=== PATIENT | female | born 1940 | race Caucasian/White ===

== ENCOUNTER 2017-09-13 13:15 | Outpatient (CLI) | payer MEDICARE, OTHER ==
[2017-09-13 12:52] LABS: #Basophils 0.1 thou/uL (0.0-0.2); #Eosinphils 0.8 thou/uL (0.0-0.7); #Lymphocytes 2.1 thou/uL (1.20-3.40); #Monocytes 0.5 thou/uL (0.11-0.59); #Neutrophils 3.8 thou/uL (1.40-6.50); %Basophils 0.8 % (0.0-1.0); %Eosinophils 10.6 % (0.0-10.0); %Lymphocytes 28.5 % (21.0-51.0); %Monocytes 7.1 % (0.0-10.0); Hematocrit 40.1 % (36.0-47.0); Red Blood Cell (RBC) Count 3.98 mill/uL (4.20-5.40); White Blood Cell (WBC) Count 7.2 thou/uL (4.8-10.8)
[2017-09-13 13:14] LABS: Anion Gap 11 mmol/L (10-20); BUN (Urea Nitrogen) 26 mg/dL (9.8-20.1); Calc. Creatinine Clearance 0 mL/min (70-130); Calcium 9.1 mg/dL (7.8-10.44); Carbon Dioxide 25 mmol/L (23-31); Chloride 107 mmol/L (98-107); Estimated GFR-MDRD 41
--- NOTE | 2017-09-13 14:47 | BD ---
DEXA BONE DENSTIY SCAN: Date: 09-13-17 Comparison: None. History: 76-year-old post-menopausal female undergoing screening examination for osteoporosis. Lumbar Spine: BMD (g/cm2) L1 0.670 T-Score: -2.9 L2 0.720 T-Score: -2.8 L3 0.729 T-Score: -3.2 L4 0.871 T-Score: -1.7 L1-L4 0.763 T-Score: -2.6 Femoral Neck: 0.614 T-Score: -2.1 Total Femur: 0.660 T-Score: -2.3 The FRAX/WHO fracture risk assessment is not reported as some T-scores are at or below -2.5. Impression: Osteoporosis of the lumbar spine, correlating with a high risk for fracture. Femoral neck/proximal femoral osteopenia which corresponds with a moderately increased risk for frac ture. POS: [facility]
--- OUTSIDE RECORDS SUMMARY | 2017-09-15 08:02 | XMS | Clinical Summary ---
:1940 Author Organization [facility] Address [address] [place] [address] Phone Care Team Providers Name Role Phone , Primary Care Provider Unavailable Allergies Not on File Current Medications Not on file Active Problems Not on file Social History Tobacco Use Types Packs/Day Years Used Date Never Assessed Sex Assigned at Date Recorded Not on file Last Filed Vital Signs Not on file Plan of Treatment Not on file Results Not on filefrom Last 3 Months
== END 2017-09-13 13:16 | disposition home or self-care (01) ==
LOC: MAMMO 13:15
PROVIDERS: ATTEND Urology
DX: M85.851 Other specified disorders of bone density and structure, right thigh (principal); M85.852 Other specified disorders of bone density and structure, left thigh; M81.0 Age-related osteoporosis without current pathological fracture; M85.859 Other specified disorders of bone density and structure, unspecified thigh
CPT/HCPCS: 36415; 77080; 80048; 82607; 85025

== ENCOUNTER 2017-10-17 14:20 | Outpatient (CLI) | payer MEDICARE ==
--- NOTE | 2017-10-17 19:24 | CT ---
NONCONTRAST CT ABDOMEN AND PELVIS: 10/17/2017 HISTORY: Left flank pain that started today. The patient noticed a stone in her urostomy bag. History of hys terectomy. COMPARISON: 04/02/2016. FINDINGS: There is calcification of the mitral valve annulus. Vascular calcifications are seen in the abdomina l aorta and iliac arteries as well as limited visualized coronary arteries. There is linear scarring versus atelectasis at each lung base. There are post-surgical changes relat ed to gastric bypass procedure. Nonobstructing bilateral renal calculi are seen with 5-6 mm nonobstructing calculi in the inferior po le of each kidney and a few 2-3 mm nonobstructing calculi in the mid-portion left kidney. There is p rominent extrarenal pelvis on the left. There is no hydronephrosis. The ureters are well-visualized and not dilated and demonstrate no urete ral calculi. Post-surgical changes of loops of bowel within the pelvis. The urinary bladder is not visualized. T here is evidence of hysterectomy. There is artifact within the pelvis due to left total hip prosthesis. No other interval change compared to the prior exam. There has also been no significant interval betzaida nge from the contrasted CT scan exam on 06/08/2017, although there is less dilatation of the right re nal collecting system when compared to that prior exam. In addition, the calyces in the left kidney are no longer dilated, although there does remain prominence of the left renal pelvis, probably relat ed to an extrarenal pelvis. IMPRESSION: 1. Nonobstructing bilateral renal calculi. There is no evidence of hydronephrosis. Prominent left e xtrarenal pelvis is present. 2. Post-surgical changes of the abdomen and pelvis as described above. There has been no additional significant interval changes when compared to the prior study; although, there has been resolution of the previously noted bilateral hydronephrosis noted on the more recent study on 06/08/2017. POS: [facility]
== END 2017-10-17 14:21 | disposition home or self-care (01) ==
LOC: CT 14:20
PROVIDERS: ATTEND Urology
DX: R10.9 Unspecified abdominal pain (principal); N20.0 Calculus of kidney; Z98.890 Other specified postprocedural states
CPT/HCPCS: 74176; 87086

== ENCOUNTER 2017-10-19 16:31 | Inpatient (IN) | payer MEDICARE ==
[2017-10-19] MEDS ORDERED: Ondansetron HCl/PF 4 MG/2 ML Vial SLOW IVP PRN (17:32)
[2017-10-19] MEDS ORDERED: Acetaminophen 325 MG TAB PO PRN (17:32)
[2017-10-19 17:48] LABS: #Eosinphils 0.1 thou/uL (0.0-0.7); #Lymphocytes 0.8 thou/uL (1.20-3.40); #Monocytes 0.7 thou/uL (0.11-0.59); #Neutrophils 13.8 thou/uL (1.40-6.50); %Eosinophils 0.7 % (0.0-10.0); %Monocytes 4.6 % (0.0-10.0); Hematocrit 33.8 % (36.0-47.0); Mean Platelet Volume 7.4 fL (7.4-10.4); Red Blood Cell (RBC) Count 3.26 mill/uL (4.20-5.40); White Blood Cell (WBC) Count 15.4 thou/uL (4.8-10.8)
[2017-10-19 18:09] VITALS: BMI 23.4
[2017-10-19 18:11] LABS: ALT (SGPT) 10 U/L (8-55); AST (SGOT) 19 U/L (5-34); Alkaline Phosphatase 122 U/L (40-150); Anion Gap 12 mmol/L (10-20); BUN (Urea Nitrogen) 26 mg/dL (9.8-20.1); Bilirubin, Total 0.6 mg/dL (0.2-1.2); Calc. Creatinine Clearance 38 mL/min (70-130); Calcium 8.9 mg/dL (7.8-10.44); Carbon Dioxide 20 mmol/L (23-31); Chloride 106 mmol/L (98-107); Estimated GFR-MDRD 48; Globulin 3.8 g/dL (2.4-3.5)
--- NOTE | 2017-10-19 19:02 | RAD ---
CHEST TWO VIEW 10/19/17 HISTORY: Pneumonia. COMPARISON: Chest radiograph from 2012. FINDINGS: Small left pleural effusion and left basilar opacity. No pneumothorax. The cardiac silhouette and mediastinal contours are similar. No acute osseous abnormality. IMPRESSION: Small left effusion and left lower lobe opacity concerning for pneumonia. Followup recommended. POS: [facility]
--- NOTE | 2017-10-19 19:20 | CT ---
CT OF SINUSES NONCONTRAST 10/19/17 INDICATION: Headache. Fever. FINDINGS: Mild scattered mucosal thickening is present without acute fluid level. The regional, visualized skel etally structures are intact. Incidental note of atrophy of the brain parenchyma, partially visualize d. Imaged facial soft tissues reveal no evidence of abscess or inflammation. IMPRESSION: No acute fluid level of the paranasal sinuses. POS: [facility]
[2017-10-19] MEDS: Sodium Chloride 0.9% 1,000 ML IV SCH (20:42)
[2017-10-19] MEDS: Metoprolol Tartrate 25 MG TAB PO SCH (20:43)
[2017-10-19] MEDS: ALPRAZolam 1 MG TAB PO SCH (20:43)
[2017-10-19] MEDS: HYDROcodone/Acetaminophen 5/325 mg Tablet PO PRN (20:43)
[2017-10-19 21:35] LABS: Bacteria/HPF 4+ HPF (None Seen); Squamous Epithelial 0-3 HPF (0-3); WBC/HPF 21-50 HPF (0-3)
[2017-10-19 21:36] LABS: Hyaline Casts/LPF 4-6 HYALINE CAST LPF (0-3 Hyaline)
--- NOTE | 2017-10-19 21:59 | HP ---
HISTORY OF PRESENT ILLNESS: She is a 77-year-old female who has been ill for past 3-4 days, she has had her temperature running as high as 101.6 confirmed in my office. She has had a lot of nausea and vomiting. She normally has diarrhea, so this is not a new finding for her. She has been having asad n in her left flank, which radiated around front of her abdomen. She saw Dr. Rider the day prior t o this for evaluation of that pain with which he did a scan, her lower abdomen that returned normal. She is in my office quite ill and needing further evaluation. PAST MEDICAL HISTORY: quite complicated for multiple urological problems resulting in urostomy. She has had hematuria and has come to the [facility] in 07/2016 and had that worked up. She has generalized anxiety and history of atrial fibrillation and atrial flutter. She has had pulmonary embolisms in the past. She suffers from chronic anemia, hypothyroidism, grief from the loss of 2 so ns. Colonoscopy required perianal HSV infection, insomnia and vitamin D deficiency PAST SURGICAL HISTORY: Includes gastric bypass, hernia repair, PICC line placement, appendectomy, il eostomy, urostomy and left hip replacement. PSYCHIATRIC HISTORY: As mentioned previously is significant for depression and severe generalized an xiety. SOCIAL HISTORY: She is , has never smoked. Denies alcohol use or illicit drug use. Lives at home with her . FAMILY HISTORY: Shows her father had cardiac disease. Mother had diabetes type 2. ALLERGIES: She has significant allergies to CEPHALEXIN DAIRY PRODUCTS, DOXYCYCLINE, HYOSCYAMINE, IBU PROFEN, LEVAQUIN, NITROFURANTOIN, PENICILLIN, SIMVASTATIN, and SULFA DRUGS. CURRENT MEDICATIONS: At the time of admission include Protonix 40 mg a day, levothyroxine 88 mcg osmin ly, alprazolam 1 mg t.i.d., Zofran 8 mg q.6 hours p.r.n. nausea, Multaq 400 mg b.i.d., famciclovir 50 0 mg daily, Xarelto 50 mg daily, spironolactone 25 mg 1/2 tab daily, metoprolol tartrate 25 mg 1/2 b. i.d., Brintellix 20 mg 1 daily, Lomotil 1-2 tabs q.i.d. p.r.n. diarrhea, oxybutynin 5 mg b.i.d., Prom ethazine 25 mg at bedtime for insomnia. REVIEW OF SYSTEMS: GENERAL: Significant for fever, fatigue. She has no appetite. HEENT: Significant for headaches and sinus pressure. NECK: Supple. Denies mass or trouble swallowing. CHEST: Feels short-winded and his coughing is productive of yellow phlegm. BREAST: Deferred. HEART: Regular rate and rhythm. Denies any current arrhythmias or chest pain. EXTREMITIES: Significant for mid epigastric pain and tenderness radiating from the left flank. Ther e is nausea and vomiting. The diarrhea is not new. : Denies any recent blood in her urine or painful urination, although she uses a urostomy most of the time. MUSCULOSKELETAL: His general muscle aches and pains, no specific joint swelling, redness, heat or er ythema. SKIN: Without acute rashes or lesions with poor turgor. NEUROLOGIC: Anxiety is baseline without delusions, hallucinations. PHYSICAL EXAMINATION: At the time of admission, VITAL SIGNS: Blood pressure is 122/60, temperature 101.6, pulse 76, respirations 16. She weighs 125 pounds. She is 58 inches tall. Her BMI is 25. GENERAL: This is an elderly female who appears ill and has fatigue. HEENT: Normocephalic and atraumatic. Pupils equal, round, and reactive to light with arcus senilis bilaterally. TMs, nares clear. Pharynx is dry. NECK: Supple. Trachea midline, no mass. CHEST: With diminished breath sounds in left lower lobe, otherwise clear. BREAST: Deferred. HEART: Regular rate and rhythm at this time. ABDOMEN: Tender midepigastrically. No guarding or rebound. BACK: Shows right flank tenderness, the spine if otherwise significant for kyphosis. : Deferred. EXTREMITIES: With urostomy in place. Without clubbing, cyanosis, or edema. Normal range of motion present. Symmetrical muscular tone development noted in upper and lower extremities. SKIN: Without acute rashes or lesions, but poor turgor demonstrated. NEUROLOGIC: Cranial nerves are intact. Gait and cerebellar function are intact. Deep tendon reflex es 1+ bilaterally. Mental status significant for anxiety and exhaustion. Cranial nerves are intact. Sensory exam is grossly intact and this includes her peripheral extremities, no neuropathy is prese nt. LABORATORY AND X-RAY FINDINGS: The lab work is pending at the time of admission. ASSESSMENT: 1. Febrile illness. Etiology to be determined. 2. Dehydration. 3. History of chronic/recurrent UTIs with multiple drug allergies and hematuria. 4. Significant anxiety disorder. 5. Atrial fibrillation/atrial flutter. 6. Hypothyroidism. PLAN: Will be IV fluids and rehydration, antiemetics. Examinations of blood and urine and serial re evaluation. We will hold antibiotics right now. Pending specific culture results and symptomatic tr eatment of the patient and response to that treatment.
[2017-10-19] MEDS ORDERED: Furosemide 20 MG TAB PO PRN (22:47)
[2017-10-19] MEDS ORDERED: Oxybutynin 5 MG TAB PO PRN (22:52)
[2017-10-19] MEDS ORDERED: Ondansetron ODT 8 MG TAB PO PRN (22:52)
[2017-10-20] MEDS: Sodium Chloride 0.9% 1,000 ML IV SCH ×4 (02:25→23:57)
[2017-10-20 04:38] LABS: #Eosinphils 0.3 thou/uL (0.0-0.7); #Lymphocytes 0.7 thou/uL (1.20-3.40); #Monocytes 0.6 thou/uL (0.11-0.59); #Neutrophils 8.1 thou/uL (1.40-6.50); %Basophils 0.3 % (0.0-1.0); %Eosinophils 2.6 % (0.0-10.0); %Lymphocytes 7.2 % (21.0-51.0); %Monocytes 6.5 % (0.0-10.0); Hematocrit 33.5 % (36.0-47.0); Mean Platelet Volume 7.7 fL (7.4-10.4); Red Blood Cell (RBC) Count 3.24 mill/uL (4.20-5.40); White Blood Cell (WBC) Count 9.7 thou/uL (4.8-10.8)
[2017-10-20 04:56] LABS: ALT (SGPT) 8 U/L (8-55); AST (SGOT) 15 U/L (5-34); Alkaline Phosphatase 112 U/L (40-150); Anion Gap 9 mmol/L (10-20); BUN (Urea Nitrogen) 24 mg/dL (9.8-20.1); Bilirubin, Total 0.4 mg/dL (0.2-1.2); Calc. Creatinine Clearance 40 mL/min (70-130); Calcium 8.8 mg/dL (7.8-10.44); Carbon Dioxide 22 mmol/L (23-31); Chloride 109 mmol/L (98-107); Estimated GFR-MDRD 50; Globulin 3.7 g/dL (2.4-3.5); Protein, Total 6.7 g/dL (6.0-8.3)
[2017-10-20] MEDS: Levothyroxine Sodium 88 MCG TAB PO SCH (05:25)
--- NOTE | 2017-10-20 08:31 | PRG ---
DATE OF SERVICE: 10/20/2017 The patient had a good night. She is still complaining of some slight abdominal discomfort, more lik e cramps. She did tell me on Tuesday that she did see another doctor for some "kidney issues" and vivian cedeno did have a CAT scan of her abdomen and pelvis which winded up being normal. She also had a urinaly sis; however, the results of this are pending. PHYSICAL EXAMINATION GENERAL: Upon evaluation, she is awake, alert, and oriented to person, place and time. VITAL SIGNS: Her blood pressure is 115/57, pulse 72, respirations 16, temperature is 98.3, the highe st it spiked last night was 99.1, however, when she was admitted to the hospital it was 102. NECK: Supple with no increased JVP or carotid bruit. Carotid had good upstroke with no thyromegaly. COR: Regular rate and rhythm. CHEST: Symmetrical. Clear to auscultation and percussion. ABDOMEN: Generalized tenderness. She had normoactive bowel sounds. There is no bruit or organomega ly. EXTREMITIES: She had palpable pedal pulses. SKIN: There is no evidence of ulceration lesion, or rash. NEUROLOGIC: She is awake, alert, and oriented to person, place, and time. LABORATORY DATA: Showed urine RBC of 7-10, her white blood cells 21-50. Her sodium is 135. Her pot assium is 4.5. Her BUN is 24, her creatinine was 1.07. Her white blood cell count was normal. Her H&H was 10.8 and 33.5. Her flu swab was negative. Her chest x-ray showed a possible pneumonia. Her sinus CT was unremarkable. ASSESSMENT: 1. Urinary tract infection. 2. Pneumonia. 3. General anxiety disorder. 4. Hypertension. 5. Hypothyroidism. PLAN: 1. The patient will be started on antibiotics. We will also give Xopenex p.r.n. We will also wait for urine C&S. 2. We will follow up with a CBC and CMP in the morning as well as chest x-ray. 3. We will encourage to get out of bed and into the chair. 4. We will encourage fluid intake.
[2017-10-20] MEDS ORDERED: Albuterol Sulfate 2.5 mg/0.5 ml Neb NEB PRN (08:36)
[2017-10-20] MEDS ORDERED: FLU VACC TS2017-18 (>65YR) 0.5 ML SYRINGE IM ONE (09:00)
[2017-10-20] MEDS: Diphenoxylate HCl/Atropine Tablet PO SCH ×4 (09:50→20:23)
[2017-10-20] MEDS: Metoprolol Tartrate 25 MG TAB PO SCH ×2 (09:50→20:24)
[2017-10-20] MEDS: HYDROcodone/Acetaminophen 5/325 mg Tablet PO PRN ×2 (09:51→20:24)
[2017-10-20] MEDS: Dronedarone HCl 400 MG TAB PO SCH ×2 (09:51→18:11)
[2017-10-20] MEDS: ALPRAZolam 1 MG TAB PO SCH ×3 (09:51→20:24)
[2017-10-20] MEDS: Spironolactone 25 MG TAB PO SCH (09:53)
[2017-10-20] MEDS: Famciclovir 500 MG TAB PO SCH (09:53)
[2017-10-20] MEDS: Azithromycin 500 MG, Admixture Fee 1 EACH in Sodium Chloride 0.9% 250 ML 250 ML IVPB SCH (09:55)
[2017-10-20] MEDS: cefTRIAXone\\ROCEPHIN 1 GM, Syringe 0.4 ML in Sterile Water 9.6 ML SLOW IVP SCH (09:55)
[2017-10-20] MEDS: Rivaroxaban 15 MG TAB PO SCH (18:11)
[2017-10-21 04:36] LABS: #Eosinphils 0.7 thou/uL (0.0-0.7); #Lymphocytes 1.2 thou/uL (1.20-3.40); #Monocytes 0.9 thou/uL (0.11-0.59); %Basophils 0.1 % (0.0-1.0); %Eosinophils 9.5 % (0.0-10.0); %Lymphocytes 15.1 % (21.0-51.0); %Monocytes 11.5 % (0.0-10.0); Hematocrit 33.1 % (36.0-47.0); Red Blood Cell (RBC) Count 3.13 mill/uL (4.20-5.40); White Blood Cell (WBC) Count 7.8 thou/uL (4.8-10.8)
[2017-10-21 04:51] LABS: ALT (SGPT) 7 U/L (8-55); AST (SGOT) 15 U/L (5-34); Alkaline Phosphatase 93 U/L (40-150); Anion Gap 8 mmol/L (10-20); BUN (Urea Nitrogen) 19 mg/dL (9.8-20.1); Bilirubin, Total 0.2 mg/dL (0.2-1.2); Calc. Creatinine Clearance 48 mL/min (70-130); Calcium 8.5 mg/dL (7.8-10.44); Carbon Dioxide 19 mmol/L (23-31); Chloride 115 mmol/L (98-107); Estimated GFR-MDRD 62; Globulin 3.5 g/dL (2.4-3.5); Protein, Total 6.2 g/dL (6.0-8.3)
[2017-10-21] MEDS: Levothyroxine Sodium 88 MCG TAB PO SCH (05:37)
--- NOTE | 2017-10-21 08:47 | RAD ---
PA AND LATERAL CHEST: Date; 10/21/17 HISTORY: Pneumonia. COMPARISON: 10/19/17. FINDINGS: Cardiac silhouette and pulmonary vasculature are within normal limits. Mild chronic lung changes are seen. Previously described patchy parenchymal changes in the left lower lobe are again present, which again may be related to an area of pneumonitis. There is stable small left pleural effusion. Surgica l clips again overlie the epigastric region. Vascular calcifications seen in the thoracic and visuali zed abdominal aorta. There is osteopenia with degenerative changes in the spine. IMPRESSION: Stable chest. POS: [facility]
[2017-10-21] MEDS: Sodium Chloride 0.9% 1,000 ML IV SCH ×3 (09:07→21:22)
[2017-10-21] MEDS: Diphenoxylate HCl/Atropine Tablet PO SCH ×4 (09:08→21:19)
[2017-10-21] MEDS: ALPRAZolam 1 MG TAB PO SCH ×3 (09:08→21:11)
[2017-10-21] MEDS: Dronedarone HCl 400 MG TAB PO SCH ×2 (09:08→17:23)
[2017-10-21] MEDS: Metoprolol Tartrate 25 MG TAB PO SCH ×2 (09:09→21:12)
[2017-10-21] MEDS: Spironolactone 25 MG TAB PO SCH (09:10)
[2017-10-21] MEDS: Azithromycin 500 MG, Admixture Fee 1 EACH in Sodium Chloride 0.9% 250 ML 250 ML IVPB SCH (11:31)
[2017-10-21] MEDS: Famciclovir 500 MG TAB PO SCH (14:39)
--- NOTE | 2017-10-21 15:22 | CT ---
CT BRAIN NONCONTRAST: HISTORY: 77-year-old female on anticoagulation therapy, status post recent acute head trauma from fall, striki ng back of head. FINDINGS: There is no midline shift or any other mass effect. There is no evidence of acute intracranial hemor rhage, large cortical infarct, obstructive hydrocephalus, or extraaxial fluid collection. The calvar ium is intact. There is diffuse parenchymal volume loss. There are low attenuation areas in the whi te matter. These are nonspecific, but in a patient of this age, they are probably chronic ischemic w katty matter changes due to microvascular atherosclerosis. IMPRESSION: 1) No acute intracranial findings. 2) Involutional changes and chronic ischemic white matter changes. oni POS: [facility]
--- NOTE | 2017-10-21 15:47 | CT ---
CT THORACIC SPINE WITHOUT CONTRAST: HISTORY: Fall. Back pain. COMPARISON: None. Correlation to a comparison chest radiograph same day. FINDINGS: The thoracic spine is without a displaced fracture. There is a posterior disk-osteophyte complex whi ch is calcified at T8-T9 effacing the ventral CSF space, although the spinal canal still measures 9 m m. There are layering bilateral pleural effusions. Lungs are otherwise clear. There is a cortical irregularity of the sternum on the left at the sternoclavicular joint. IMPRESSION: 1. No acute fracture of the thoracic spine. 2. Cortical irregularity of the sternum at the left sternoclavicular joint may represent a nondispla mikala fracture. 3. Left-sided renal pelvis dilatation similar to comparison examination. POS: [facility]
[2017-10-21] MEDS: cefTRIAXone\\ROCEPHIN 1 GM, Syringe 0.4 ML in Sterile Water 9.6 ML SLOW IVP SCH (15:51)
--- NOTE | 2017-10-21 16:03 | CT ---
NONCONTRAST CT LUMBAR SPINE: Date: 10-21-17 History: Low back pain. Patient fell and landed on back. FINDINGS: There are vascular calcifications seen in the abdominal aorta involving the iliac arteries. Post-surg ical changes in loops of bowel in the left upper quadrant and left mid abdomen are present. There are non-obstructing bilateral renal calculi. These calculi were seen on study of 10-17-17. Mays vivi, there is mild bilateral hydronephrosis with mild dilatation of each ureter of uncertain etiology . The hydronephrosis has developed in the interim. Vertebral body heights are within normal limits. N o fracture or subluxation is seen involving the lumbar spine. There are calcifications of the interve rtebral discs at the L2-3, L3-4, and L4-5 levels. L1-2: There is no significant disc bulge or disc herniation. Central spinal canal and neural foramina are patent. L2-3: There is mild broad based disc osteophyte complex resulting in slight effacement of the ventral aspect of the thecal sac. Neural foramina are patent. L3-4: There is mild broad based disc osteophyte complex and mild facet hypertrophic changes with liga mentous thickening. There is generalized mild narrowing of the central spinal canal. There is minimal narrowing of each neural foramen. L4-5: There is broad based disc osteophyte complex. Facet hypertrophic changes and ligamentous thicke estevan are present. Findings result in moderate narrowing of the central spinal canal. There is interva l right sided neural foraminal narrowing. The left neural foramen is patent. L5-S1: There is a mild broad based disc bulge which encroaches on the traversing bilateral S12 nerve roots but there is no significant narrowing of the central spinal canal. The nerve root does not appe ar to be displaced posteriorly. There is mild encroachment on each neural foramen. IMPRESSION: 1. Disc degenerative changes as described above with greatest degree of central canal narrowing at th e L3-4 level which is moderate in severity. There are mild degrees of neural foraminal narrowing. 2. Mild bilateral hydronephrosis with prominent extra renal pelves bilaterally as well as mild dilata tion of each ureter. Exact etiology for hydronephrosis and hydroureter uncertain based on this exam. 3. Nonobstructing bilateral renal calculi. 4. Post-surgical changes of loops of bowel within the left upper abdomen as well as involving loops o f bowel in the pelvis. 5. No fracture or subluxation involving the lumbar spine. POS: [facility]
[2017-10-21] MEDS: Rivaroxaban 15 MG TAB PO SCH (17:23)
[2017-10-21] MEDS: Cefdinir 300 MG CAP PO SCH (21:11)
[2017-10-22] MEDS: Sodium Chloride 0.9% 1,000 ML IV SCH ×2 (06:19→18:16)
[2017-10-22] MEDS: Levothyroxine Sodium 88 MCG TAB PO SCH (06:36)
[2017-10-22] MEDS: Diphenoxylate HCl/Atropine Tablet PO SCH ×4 (09:00→20:06)
[2017-10-22] MEDS: Cefdinir 300 MG CAP PO SCH ×2 (09:03→20:06)
[2017-10-22] MEDS: ALPRAZolam 1 MG TAB PO SCH ×3 (09:03→20:08)
[2017-10-22] MEDS: Azithromycin 250 MG TAB PO SCH (09:03)
[2017-10-22] MEDS: Spironolactone 25 MG TAB PO SCH (09:03)
[2017-10-22] MEDS: Metoprolol Tartrate 25 MG TAB PO SCH ×2 (09:05→20:06)
[2017-10-22] MEDS: Dronedarone HCl 400 MG TAB PO SCH ×2 (09:06→18:16)
[2017-10-22] MEDS: Famciclovir 500 MG TAB PO SCH (10:03)
[2017-10-22] MEDS: HYDROcodone/Acetaminophen 5/325 mg Tablet PO PRN (10:08)
--- NOTE | 2017-10-22 13:01 | RAD ---
RADIOGRAPH CHEST 2 VIEWS: Date: 10/22/17. Time: 1:32 p.m. HISTORY: A 77-year-old female with fever. COMPARISON: 10/21/17. FINDINGS: Small bilateral pleural effusions, left greater than right. Ectasia and tortuosity of thoracic aorta with calcification. No cardiomegaly. Prominent interstitial markings. No consolidation. Streaky densities at the bases of the bilateral lower lobes, chronic versus acute. No pneumothorax. No sign ificant interval change. IMPRESSION: 1. Nonspecific streaky pulmonary densities in the bilateral lower lobes. 2. Small bilateral pleural effusions. 3. No interval change overall since 10/21/17. ADOLPH [] POS: [facility]
[2017-10-22] MEDS: Rivaroxaban 15 MG TAB PO SCH (18:19)
[2017-10-23] MEDS: Sodium Chloride 0.9% 1,000 ML IV SCH ×2 (01:51→09:06)
[2017-10-23 05:50] LABS: #Eosinphils 0.4 thou/uL (0.0-0.7); #Lymphocytes 1.4 thou/uL (1.20-3.40); #Monocytes 0.6 thou/uL (0.11-0.59); #Neutrophils 2.6 thou/uL (1.40-6.50); %Basophils 0.5 % (0.0-1.0); %Eosinophils 8.7 % (0.0-10.0); %Lymphocytes 28.4 % (21.0-51.0); Hematocrit 27.5 % (36.0-47.0); Mean Platelet Volume 7.2 fL (7.4-10.4); Red Blood Cell (RBC) Count 2.68 mill/uL (4.20-5.40)
[2017-10-23] MEDS: Levothyroxine Sodium 88 MCG TAB PO SCH (06:08)
[2017-10-23 06:10] LABS: Anion Gap 8 mmol/L (10-20); BUN (Urea Nitrogen) 10 mg/dL (9.8-20.1); Calc. Creatinine Clearance 55 mL/min (70-130); Calcium 7.9 mg/dL (7.8-10.44); Carbon Dioxide 18 mmol/L (23-31); Chloride 118 mmol/L (98-107); Estimated GFR-MDRD 73
[2017-10-23] MEDS: Cefdinir 300 MG CAP PO SCH (09:03)
[2017-10-23] MEDS: Dronedarone HCl 400 MG TAB PO SCH (09:03)
[2017-10-23] MEDS: Spironolactone 25 MG TAB PO SCH (09:03)
[2017-10-23] MEDS: ALPRAZolam 1 MG TAB PO SCH (09:03)
[2017-10-23] MEDS: Diphenoxylate HCl/Atropine Tablet PO SCH (09:03)
[2017-10-23] MEDS: Famciclovir 500 MG TAB PO SCH (09:03)
[2017-10-23] MEDS: Azithromycin 250 MG TAB PO SCH (09:04)
[2017-10-23] MEDS: Metoprolol Tartrate 25 MG TAB PO SCH (09:04)
[2017-10-23] MEDS: TRINTELLIX 20 MG PO SCH ×3 (09:22→09:27)
--- NOTE | 2017-10-23 10:03 | DIS ---
DATE OF ADMISSION: 10/21/2017 DATE OF DISCHARGE: 10/23/2017 CHIEF COMPLAINT: Fever of unknown origin. History and physical had previously been dictated. I will resume from there. HOSPITAL COURSE: The patient was placed in a medical bed where blood cultures were obtained, urine c ultures obtained. Chest x-ray was performed and it turns out that she developed pneumonia as a sourc e of her fever within the left lower lobe. She was begun on IV antibiotics and neb treatments as nee ded. Over the first 24 hours, the patient did fairly well with diminishing of white count from 15,00 0 down to 9000 and as each day went by went down to 7.8; at the day of discharge, it was 5. Her elec trolytes and kidney functions remained stable and in fact her dehydration present on admission was re solved in the first 24 hours. Urine culture did grow some gram-negative rods, Klebsiella oxytoca and Morganella morganii. These were felt to be present all the time as a chronic colonization due to he r longstanding urostomy and because she had no symptoms related to urinary tract infection, it was de cided not to treat that. Her flu screens came out negative. By the day of discharge, on 10/23/2017, she rested well without complaints. No coughing, oxygenation remained over 95% and she was stable t o go home, although still weak. DIAGNOSES AT THE TIME OF DISCHARGE: 1. Left lower lobe pneumonia - improved. 2. Dehydration, resolved. 3. 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 4. Atrial fibrillation/atrial flutter, stable. 5. Generalized anxiety disorder, stable. She will be discharged home on Zithromax 250 mg 1 daily #6 and Omnicef 300 mg b.i.d. #20. She is to follow up with Dr. Fan on 10/26/2017 for reassessment as an outpatient. The time necessary to revi ew the chart, examine the patient, sexual abuse counsellor the patient and prepare discharge paperwork came to 30 min utes.
[2017-10-23 12:48] VITALS: BP 111/71; TEMP 98.3
== END 2017-10-23 13:24 | disposition home or self-care (01) | DRG 194 ==
LOC: 2SW 17:18 → OBSVTOIN 10-21 16:10 → T4-B 10-21 19:13
PROVIDERS: ADMIT Specialist; ATTEND Specialist
DX: J18.9 Pneumonia, unspecified organism (principal); N39.0 Urinary tract infection, site not specified; I48.92 Unspecified atrial flutter; I48.91 Unspecified atrial fibrillation; E86.0 Dehydration; F32.9 Major depressive disorder, single episode, unspecified; I10 Essential (primary) hypertension; Z93.6 Other artificial openings of urinary tract status; A60.1 Herpesviral infection of perianal skin and rectum; E03.9 Hypothyroidism, unspecified; F41.1 Generalized anxiety disorder; G47.00 Insomnia, unspecified; Z79.01 Long term (current) use of anticoagulants; Z87.440 Personal history of urinary (tract) infections; Z86.711 Personal history of pulmonary embolism; Z88.1 Allergy status to other antibiotic agents; Z88.0 Allergy status to penicillin; Z88.2 Allergy status to sulfonamides; Z88.8 Allergy status to other drugs, medicaments and biological substances; Z96.642 Presence of left artificial hip joint; Z98.84 Bariatric surgery status; Z22.39 Carrier of other specified bacterial diseases
CPT/HCPCS: 36415; 70450; 71020; 72128; 72131; 80048; 80053; 81015; 85025; 87040; 87077; 87086; 87186; 90471; 90682; A4216; G0008; J0456; J0696; J7050; Q2036

== ENCOUNTER 2017-11-04 12:11 | Outpatient (CLI) | payer MEDICARE ==
--- NOTE | 2017-11-04 13:20 | CT ---
CONTRAST ENHANCED CHEST CT: INDICATION: Pneumonia with dyspnea. FINDINGS: Mild pleural-based density at the inferior and posterior left hemithorax present. This may be on the basis of a small volume of pleural fluid and adjacent atelectasis. There is minimal right pleural f luid as well. Postsurgical change at the GE junction is present. Incidental note of marked thickeni ng and irregularity of the esophageal wall with retained, ingested debris of the pulmonary arteries a re patent. Thoracic aorta is nonaneurysmal with scattered vascular disease. There are scattered oss eous degenerative changes. Dense coronary artery calcium is present. IMPRESSION: 1. No lobar consolidation. 2. There is mild left and minimal right pleural fluid with adjacent passive atelectasis. 3. Marked abnormality of the esophagus. This could relate to esophageal inflammation or neoplasm. Recommend GI consultation for further care. 4. Diffuse vascular disease. POS: [facility]
[2017-11-04] MEDS ORDERED: Iopamidol 370 76% 100 ML VIAL ONE (17:27)
== END 2017-11-04 12:12 | disposition home or self-care (01) ==
LOC: CT 12:11
PROVIDERS: ATTEND Specialist
DX: J18.9 Pneumonia, unspecified organism (principal); R06.00 Dyspnea, unspecified; J98.11 Atelectasis; J90 Pleural effusion, not elsewhere classified; I99.9 Unspecified disorder of circulatory system
CPT/HCPCS: 71260

== ENCOUNTER 2018-03-13 15:25 | Inpatient (IN) | payer MEDICARE ==
[2018-03-13] MEDS ORDERED: Ondansetron PF 4 MG/2 ML Vial SLOW IVP PRN (16:53)
[2018-03-13 17:53] LABS: Bilirubin Negative (Negative); Blood, Urine Negative (Negative); Clarity CLOUDY (Clear); Glucose, Urine (Dipstick) Negative (Negative); Leukocyte Large (Negative); Nitrite Positive (Negative); Protein, Urine (Dipstick) Negative (Neg-Trace); Specific Gravity, Urine 1.011 (1.002-1.036); Urobilinogen 0.2 mg/dL (0.2-1.0); pH, Urine 7.5 (5.0-9.0)
[2018-03-13 17:59] LABS: Hyaline Casts/LPF 4-6 HYALINE CAST LPF (0-3 Hyaline); Pathc Cast-AUWi Flag 0.58 (0-2.49); RBC/HPF 0-3 HPF (0-3)
[2018-03-13 18:13] LABS: Hemoglobin 10.6 g/dL (12.0-16.0); Mean Corpuscular HGB CONC 33.5 g/dL (32.0-36.0); Mean Corpuscular Hemoglobin 32.8 pg (27.0-31.0); Mean Corpuscular Volume 97.8 fl (81.0-99.0); Mean Platelet Volume 7.2 fL (7.4-10.4); Platelet Count 335 thou/uL (130-400); RBC Distribution Width 13.5 % (11.5-14.5); Red Blood Cell (RBC) Count 3.24 mill/uL (4.20-5.40); White Blood Cell (WBC) Count 13.2 thou/uL (4.8-10.8)
[2018-03-13 18:15] LABS: Bacteria/HPF 3+ HPF (None Seen); Renal Epithelial None Seen HPF (0-3); Transitional Epithelial NONE SEEN HPF (0-3)
[2018-03-13 18:34] LABS: ALT (SGPT) 7 U/L (8-55); AST (SGOT) 12 U/L (5-34); Albumin 3.5 g/dL (3.4-4.8); Alkaline Phosphatase 95 U/L (40-150); Anion Gap 13 mmol/L (10-20); BUN (Urea Nitrogen) 21 mg/dL (9.8-20.1); Bilirubin, Total 0.4 mg/dL (0.2-1.2); Calc. Creatinine Clearance 36 mL/min (70-130); Calcium 8.8 mg/dL (7.8-10.44); Carbon Dioxide 17 mmol/L (23-31); Chloride 113 mmol/L (98-107); Estimated GFR-MDRD 46; Globulin 3.9 g/dL (2.4-3.5); Glucose 108 mg/dL (83-110); Protein, Total 7.4 g/dL (6.0-8.3); Sodium 139 mmol/L (136-145)
[2018-03-13] MEDS: Sodium Chloride 0.9% 1,000 ML IV SCH (18:46)
[2018-03-13 19:09] LABS: Band 5 % (5-11); Eosinophils 3 % (0-10); Lymphocytes 11 % (21-51); MDiff Complete? YES; Monocytes 8 % (0-10); Neutrophil 73 % (42-75); Ovalocytes SLIGHT = 2-5 cells (100X) (0-1/hpf); PLT Morphology Comment Appears Adequate; Polychromasia SLIGHT = 2-3 cells (100X) (0-2/hpf)
--- NOTE | 2018-03-13 19:21 | RAD ---
LEFT WRIST THREE VIEWS: HISTORY: Pain. COMPARISON: None. FINDINGS: There is degenerative change of the first carpometacarpal joint space. There is also degenerative ch wodoy of the scaphotrapezium joint space. An acute fracture is not appreciated. There is diffuse bon e demineralization. IMPRESSION: 1. Chronic change, as defined above. 2. Diffuse bone demineralization. POS: [facility]
--- NOTE | 2018-03-13 19:43 | HP ---
This is LIBORIO Blackburn, dictating for Buddy Fan M.D. DATE OF ADMISSION: 03/13/2018 REASON FOR ADMISSION: Diarrhea and dehydration. HISTORY OF PRESENT ILLNESS: This is a pleasant female with history of multiple medical problems to i nclude a small-bowel obstruction, UTI, chronic abdominal pain and anxiety disorder. She presents with a 3-4 day history of increasing weakness. She has also been having "diarrhea." He r states she is not drinking much in that she is dehydrated. She also has been running a tem perature of 100 degrees. She also has been having joint pain so bad, she cannot even touch her left wrist. For this reason, the patient is being admitted for further evaluation and treatment. PAST MEDICAL HISTORY: 1. As above plus anxiety disorder. 2. Depression. 3. She does have a history of atrial fibrillation, on Xarelto. She is followed by Dr. Babin. 4. Hypothyroidism. 5. Esophageal narrowing. 6. History of recurrent DVT with PE. 7. 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 8. History of ileostomy. PAST SURGICAL HISTORY: 1. Bladder suspension in the past. 2. Abdominal hysterectomy. 3. Elective oophorectomy. 4. Appendectomy. 5. Tonsillectomy. 6. Urostomy. 7. Cholecystectomy. ALLERGIES: SULFA, LEVAQUIN, and DARVON. MEDICATIONS: 1. Metoprolol 25 mg half b.i.d. 2. Xarelto 15 mg every day. 3. Trentellix 20 mg every day. 4. Xanax 1 mg t.i.d. FAMILY HISTORY: Noncontributory. SOCIAL HISTORY: She does not smoke, does not drink. She is . REVIEW OF SYSTEMS: General: Admits to weakness, fatigue and fever and chills. HEENT: No diplopia, amaurosis fugax, tinnitus, sore throat, or hoarseness. Cardiovascular: No chest, arm, or back pain . Pulmonary: Does have a history of PE. No cough or hemoptysis. Gastrointestinal: See history of present illness. Genitourinary: No dysuria, nocturia, oliguria or polyuria. Endocrine: No polyph agia, polydipsia or heat or cold intolerance. Musculoskeletal: Admits to arthralgias. No lupus or myopathy. Neurologic: No history of TIA or seizure. All systems are negative. PHYSICAL EXAMINATION: GENERAL: Pleasant female who appears to be weak. She is pale. Her is at her bedside. VITAL SIGNS: Her blood pressure 118/60, pulse 80, respiratory rate 24, temperature 100.6. NECK: Supple with no increased JVP or carotid bruit. Carotid had good upstroke with no thyromegaly. COR: Regular rhythm. A grade 2/6 systolic murmur. CHEST: Symmetrical. Clear to auscultation and percussion. ABDOMEN: Soft, nontender with normoactive bowel sounds. No bruit or organomegaly. EXTREMITIES: No edema or cyanosis. Palpable pedal pulses. SKIN: There is no evidence of ulcers lesion, or rash. NEUROLOGIC: She is awake, alert, and oriented to person, place, and time. ASSESSMENT: 1. Dehydration. 2. Diarrhea. 3. Viral infection. 4. Atrial fibrillation. 5. Hypertension. 6. Anxiety disorder. 7. Chronic abdominal pain. 8. Multiple medical problems. PLAN: 1. The patient will be admitted where lab will be obtained. 2. We will check a stool for Clostridium difficile. 3. Begin her home medications. 4. We will begin IV fluids and start her on clear liquid diet. 5. All questions answered to the patient's satisfaction.
[2018-03-13] MEDS: ALPRAZolam 1 MG TAB PO SCH (20:27)
[2018-03-13] MEDS: Metoprolol Tartrate 25 MG TAB PO SCH (20:27)
[2018-03-13] MEDS ORDERED: Pentazocine HCl/Naloxone HCl 50/0.5 MG TAB PO PRN (21:16)
[2018-03-13] MEDS ORDERED: Ondansetron ODT 8 MG TAB PO PRN (21:17)
[2018-03-13] MEDS ORDERED: Dronedarone HCl 400 MG TAB PO SCH (22:30)
[2018-03-13] MEDS ORDERED: Promethazine 25 MG TAB PO SCH (22:30)
[2018-03-13] MEDS: Acetaminophen 325 MG TAB PO PRN (22:40)
[2018-03-14] MEDS: Sodium Chloride 0.9% 1,000 ML IV SCH ×4 (02:20→21:02)
[2018-03-14] MEDS: Levothyroxine Sodium 88 MCG TAB PO SCH (04:44)
[2018-03-14 05:44] LABS: Hemoglobin 8.9 g/dL (12.0-16.0); Platelet Count 268 thou/uL (130-400)
[2018-03-14 06:01] LABS: ALT (SGPT) Less than 7 U/L (8-55); AST (SGOT) 11 U/L (5-34); Albumin 2.6 g/dL (3.4-4.8); Alkaline Phosphatase 82 U/L (40-150); Anion Gap 10 mmol/L (10-20); BUN (Urea Nitrogen) 16 mg/dL (9.8-20.1); Bilirubin, Total 0.3 mg/dL (0.2-1.2); Calc. Creatinine Clearance 50 mL/min (70-130); Calcium 7.8 mg/dL (7.8-10.44); Carbon Dioxide 16 mmol/L (23-31); Chloride 117 mmol/L (98-107); Estimated GFR-MDRD 67; Glucose 79 mg/dL (83-110); Potassium 3.2 mmol/L (3.5-5.1); Protein, Total 5.6 g/dL (6.0-8.3); Sodium 140 mmol/L (136-145)
[2018-03-14 06:07] LABS: Band 3 % (5-11); Eosinophils 4 % (0-10); Hemoglobin 8.9 g/dL (12.0-16.0); Lymphocytes 19 % (21-51); MDiff Complete? YES; Mean Corpuscular HGB CONC 33.1 g/dL (32.0-36.0); Mean Corpuscular Volume 99.5 fl (81.0-99.0); Mean Platelet Volume 7.7 fL (7.4-10.4); Monocytes 5 % (0-10); Neutrophil 69 % (42-75); PLT Morphology Comment Appears Adequate; Platelet Count 264 thou/uL (130-400); RBC Distribution Width 13.7 % (11.5-14.5); Red Blood Cell (RBC) Count 2.69 mill/uL (4.20-5.40); White Blood Cell (WBC) Count 11.2 thou/uL (4.8-10.8)
[2018-03-14] MEDS: Rivaroxaban 15 MG TAB PO SCH (08:22)
[2018-03-14] MEDS: Dronedarone HCl 400 MG TAB PO SCH ×2 (08:23→21:05)
[2018-03-14] MEDS: Metoprolol Tartrate 25 MG TAB PO SCH ×2 (08:25→21:04)
[2018-03-14] MEDS: Oxybutynin 5 MG TAB PO SCH (08:25)
[2018-03-14] MEDS: Spironolactone 25 MG TAB PO SCH (08:26)
[2018-03-14] MEDS: ALPRAZolam 1 MG TAB PO SCH ×3 (08:27→21:05)
[2018-03-14] MEDS: metroNIDAZOLE 500 MG TAB PO SCH ×3 (08:33→21:05)
[2018-03-14] MEDS: Famciclovir 500 MG TAB PO SCH (08:34)
[2018-03-14] MEDS ORDERED: Potassium Chloride 20 MEQ TAB PO SCH (08:45)
[2018-03-14] MEDS ORDERED: VORTIOXETINE HYDROBROMIDE PO SCH (09:00)
[2018-03-14] MEDS ORDERED: Rivaroxaban 15 MG TAB PO SCH (09:00)
[2018-03-14] MEDS ORDERED: ALPRAZolam 1 MG TAB PO SCH (09:00)
--- NOTE | 2018-03-14 09:04 | PRG ---
DATE OF SERVICE: 03/14/2018 SUBJECTIVE: The patient had a good night. She feels a little bit better. She has got IV fluids on. She still has some diarrhea. The stool studies are pending; however, she was found to have a UTI. LABORATORY DATA: Her white blood cell was 11.2, H&H 8.9 and 26.8. Her platelet count is 264. PHYSICAL EXAMINATION: GENERAL: She is awake, alert, and oriented to person, place and time. VITAL SIGNS: Her blood pressure is 124/50, pulse 80, respiration rate 18. She is afebrile. NECK: Supple, no increased JVP or carotid bruit. Carotid had good upstroke, no thyromegaly. COR: Regular rate and rhythm. CHEST: Symmetrical. Clear to auscultation and percussion. ABDOMEN: Tender all quadrants. She had normoactive bowel sounds. No bruit or organomegaly. EXTREMITIES: No edema, cyanosis. She had palpable pedal pulses. SKIN: There is no evidence of ulceration, lesion or rash. NEUROLOGIC: She is awake, alert, and oriented to person, place, and time. ASSESSMENT: 1. Urinary tract infection. 2. Rule out Clostridium difficile. 3. Anxiety disorder. 4. History of chronic abdominal pain. 5. Hypertension. 6. Dehydration. 7. Multiple medical problems. PLAN: The patient will continue on intravenous fluids. We will also add Rocephin to her medication regimen and also Flagyl. I will check stools for occult blood secondary to anemia and will follow up with lab in the morning. The patient verbalized understanding. All questions answered to her satis faction.
[2018-03-14] MEDS: cefTRIAXone\\ROCEPHIN 1 GM, Syringe 0.4 ML in Sterile Water 9.6 ML SLOW IVP SCH (09:46)
[2018-03-14] MEDS: Acetaminophen 325 MG TAB PO PRN (16:02)
[2018-03-14] MEDS: Promethazine 25 MG TAB PO SCH (21:04)
[2018-03-15] MEDS: Levothyroxine Sodium 88 MCG TAB PO SCH (04:25)
[2018-03-15] MEDS: Sodium Chloride 0.9% 1,000 ML IV SCH ×2 (04:30→14:06)
[2018-03-15 05:36] LABS: ALT (SGPT) 7 U/L (8-55); AST (SGOT) 12 U/L (5-34); Albumin 2.6 g/dL (3.4-4.8); Alkaline Phosphatase 72 U/L (40-150); Anion Gap 9 mmol/L (10-20); BUN (Urea Nitrogen) 10 mg/dL (9.8-20.1); Bilirubin, Total 0.2 mg/dL (0.2-1.2); Calc. Creatinine Clearance 55 mL/min (70-130); Calcium 7.6 mg/dL (7.8-10.44); Carbon Dioxide 16 mmol/L (23-31); Chloride 118 mmol/L (98-107); Estimated GFR-MDRD 71; Globulin 2.9 g/dL (2.4-3.5); Glucose 68 mg/dL (83-110); Potassium 3.3 mmol/L (3.5-5.1); Protein, Total 5.5 g/dL (6.0-8.3); Sodium 140 mmol/L (136-145)
[2018-03-15 06:35] LABS: Band 6 % (5-11); Eosinophils 5 % (0-10); Lymphocytes 17 % (21-51); MDiff Complete? YES; Macrocytosis SLIGHT = 6-15 cells (100X) (0-5/hpf); Mean Corpuscular HGB CONC 34.4 g/dL (32.0-36.0); Mean Corpuscular Hemoglobin 34.8 pg (27.0-31.0); Mean Platelet Volume 7.9 fL (7.4-10.4); Monocytes 6 % (0-10); Myelocyte 1 % (0-0); Neutrophil 63 % (42-75); Ovalocytes SLIGHT = 2-5 cells (100X) (0-1/hpf); PLT Morphology Comment Appears Adequate; Platelet Count 246 thou/uL (130-400); RBC Distribution Width 13.9 % (11.5-14.5); Reactive Lymphocytes 1 % (0-10); Red Blood Cell (RBC) Count 2.58 mill/uL (4.20-5.40); White Blood Cell (WBC) Count 9.4 thou/uL (4.8-10.8)
[2018-03-15] MEDS: Spironolactone 25 MG TAB PO SCH (08:34)
[2018-03-15] MEDS: Dronedarone HCl 400 MG TAB PO SCH ×2 (08:35→20:05)
[2018-03-15] MEDS: Famciclovir 500 MG TAB PO SCH (08:35)
[2018-03-15] MEDS: ALPRAZolam 1 MG TAB PO SCH ×3 (08:35→20:05)
[2018-03-15] MEDS: Metoprolol Tartrate 25 MG TAB PO SCH ×2 (08:35→20:05)
[2018-03-15] MEDS: Oxybutynin 5 MG TAB PO SCH (08:37)
[2018-03-15] MEDS: Rivaroxaban 15 MG TAB PO SCH (08:37)
[2018-03-15] MEDS: metroNIDAZOLE 500 MG TAB PO SCH ×3 (08:37→20:05)
[2018-03-15] MEDS: cefTRIAXone\\ROCEPHIN 1 GM, Syringe 0.4 ML in Sterile Water 9.6 ML SLOW IVP SCH (08:46)
[2018-03-15] MEDS: Vancomycin HCl 750 MG in Sodium Chloride 0.9% 250 ML 250 ML IVPB SCH (10:52)
[2018-03-15 14:49] LABS: ANA Symphony (Qualitative) Negative (Negative); dsDNA IgG Antibody 1.3 IU/mL (<10 Negative)
[2018-03-15] MEDS: Promethazine 25 MG TAB PO SCH (20:05)
[2018-03-16] MEDS: Sodium Chloride 0.9% 1,000 ML IV SCH ×6 (00:22→21:01)
[2018-03-16] MEDS: Acetaminophen 325 MG TAB PO PRN (00:25)
[2018-03-16 05:04] LABS: Anion Gap 7 mmol/L (10-20); BUN (Urea Nitrogen) 7 mg/dL (9.8-20.1); Calc. Creatinine Clearance 55 mL/min (70-130); Calcium 7.4 mg/dL (7.8-10.44); Carbon Dioxide 16 mmol/L (23-31); Chloride 120 mmol/L (98-107); Estimated GFR-MDRD 71; Glucose 63 mg/dL (83-110); Potassium 3.2 mmol/L (3.5-5.1); Sodium 140 mmol/L (136-145)
[2018-03-16] MEDS: Levothyroxine Sodium 88 MCG TAB PO SCH (05:26)
[2018-03-16] MEDS: cefTRIAXone\\ROCEPHIN 1 GM, Syringe 0.4 ML in Sterile Water 9.6 ML SLOW IVP SCH (09:12)
[2018-03-16] MEDS: Vancomycin HCl 750 MG in Sodium Chloride 0.9% 250 ML 250 ML IVPB SCH (09:13)
[2018-03-16] MEDS: Famciclovir 500 MG TAB PO SCH (09:13)
[2018-03-16] MEDS: Rivaroxaban 15 MG TAB PO SCH (09:13)
[2018-03-16] MEDS: metroNIDAZOLE 500 MG TAB PO SCH ×3 (09:14→21:00)
[2018-03-16] MEDS: Metoprolol Tartrate 25 MG TAB PO SCH ×2 (09:14→21:00)
[2018-03-16] MEDS: Oxybutynin 5 MG TAB PO SCH (09:14)
[2018-03-16] MEDS: Spironolactone 25 MG TAB PO SCH (09:14)
[2018-03-16] MEDS: ALPRAZolam 1 MG TAB PO SCH ×3 (09:15→21:01)
[2018-03-16] MEDS: Dronedarone HCl 400 MG TAB PO SCH ×2 (09:15→21:00)
[2018-03-16 11:55] VITALS: BMI 25.0
--- NOTE | 2018-03-16 14:41 | PQF ---
CLINICAL DOCUMENTATION IMPROVEMENT CLARIFICATION FORM: ICD-10 Updated PLEASE DO AN ADDENDUM TO THE PROGRESS NOTE WITH ANY DOCUMENTATION UPDATES OR ADDITIONS AND CARRY THROUGH TO DC SUMMARY. THANK YOU. DATE: 03/16 ATTN: DR. ANSHUL CRUZ Please exercise your independent, professional judgment in responding to the clarification form. Clinical indicators are provided on the bottom of this form for your review Please check appropriate box(s): [ ] Acute Renal Failure (ARF) / Acute Kidney Injury (JEFF) [ ] Other Etiology or underlying conditions related to the diagnosis of ARF/ JEFF: [ ] Acute on Chronic Renal Failure please specify Stage of CKD (see below) [ x ] CKD without ARF/JEFF please specify Stage of CKD___II [ ] Other diagnosis [ ] Unable to determine National Kidney Foundation Guidelines for CKD Staging Stage I Kidney damage with normal or increased GFR GFR > 90 Stage II Kidney damage with mildly decreased GFR GFR 60-89 Stage III Kidney damage with moderately decreased GFR GFR 30-59 Stage IV Kidney damage with severely decreased GFR GFR 16-29 Stage V Kidney failure GFR<15 ESRD End Stage Renal Disease On dialysis For continuity of documentation, please document condition throughout progress notes and discharge summary. Thank You. 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 SHE ALSO HAS BEEN HAVING "DIARRHEA". HER STATES SHE IS NOT DRINKING MUCH IN THAT SHE IS DEHYDRATED. ASSESSMENT: 1) DEHYDRATION; 2) DIARRHEA RISKS: DIARRHEA DEHYDRATION TREATMENT: IVF (NS 03/13 - PRESENT) SERIAL BMP THANK YOU! Letitia (This form is maintained as a part of the permanent medical record) 2015 [employer]. All Rights Reserved Letitia Sahni RN, BSN [email or web address] Office: [phone] [facility] INSANEValeriano
[2018-03-16] MEDS: Promethazine 25 MG TAB PO SCH (21:01)
[2018-03-17] MEDS: Sodium Chloride 0.9% 1,000 ML IV SCH (03:14)
[2018-03-17] MEDS: Levothyroxine Sodium 88 MCG TAB PO SCH (05:01)
[2018-03-17 05:31] LABS: Anion Gap 8 mmol/L (10-20); BUN (Urea Nitrogen) 4 mg/dL (9.8-20.1); Calc. Creatinine Clearance 57 mL/min (70-130); Calcium 7.3 mg/dL (7.8-10.44); Carbon Dioxide 14 mmol/L (23-31); Chloride 119 mmol/L (98-107); Estimated GFR-MDRD 73; Glucose 70 mg/dL (83-110); Potassium 3.1 mmol/L (3.5-5.1); Sodium 138 mmol/L (136-145)
[2018-03-17 08:21] LABS: Vancomycin, Trough 8.4 ug/mL
[2018-03-17] MEDS: Vancomycin HCl 25 MG/ML Oral PO SCH ×4 (09:46→20:45)
[2018-03-17] MEDS: Dronedarone HCl 400 MG TAB PO SCH ×2 (09:47→20:44)
[2018-03-17] MEDS: Metoprolol Tartrate 25 MG TAB PO SCH ×2 (09:47→20:43)
[2018-03-17] MEDS: Rivaroxaban 15 MG TAB PO SCH (09:47)
[2018-03-17] MEDS: Cefdinir 300 MG CAP PO SCH ×2 (09:47→20:44)
[2018-03-17] MEDS: Potassium Chloride 20 MEQ TAB PO SCH ×2 (09:48→20:45)
[2018-03-17] MEDS: Famciclovir 500 MG TAB PO SCH (09:48)
[2018-03-17] MEDS: metroNIDAZOLE 500 MG TAB PO SCH ×3 (09:48→20:44)
[2018-03-17] MEDS: ALPRAZolam 1 MG TAB PO SCH ×3 (09:48→20:44)
[2018-03-17] MEDS: Oxybutynin 5 MG TAB PO SCH (09:48)
[2018-03-17] MEDS: Spironolactone 25 MG TAB PO SCH (09:48)
[2018-03-17] MEDS: Promethazine 25 MG TAB PO SCH (20:44)
[2018-03-18 00:01] VITALS: TEMP 98
[2018-03-18 04:21] LABS: Hemoglobin 9.6 g/dL (12.0-16.0); Platelet Count 317 thou/uL (130-400)
[2018-03-18 04:52] LABS: Anion Gap 10 mmol/L (10-20); BUN (Urea Nitrogen) 5 mg/dL (9.8-20.1); Calc. Creatinine Clearance 52 mL/min (70-130); Calcium 7.6 mg/dL (7.8-10.44); Carbon Dioxide 15 mmol/L (23-31); Chloride 120 mmol/L (98-107); Estimated GFR-MDRD 66; Glucose 70 mg/dL (83-110); Sodium 141 mmol/L (136-145)
[2018-03-18] MEDS: Levothyroxine Sodium 88 MCG TAB PO SCH (06:33)
[2018-03-18] MEDS ORDERED: Insulin Regular 300 UNITS/3 ML VIAL SC SCH ×2 (07:30→12:00)
[2018-03-18 07:53] VITALS: BP 125/68
[2018-03-18] MEDS: Cefdinir 300 MG CAP PO SCH (08:10)
[2018-03-18] MEDS: Oxybutynin 5 MG TAB PO SCH (08:10)
[2018-03-18] MEDS: Spironolactone 25 MG TAB PO SCH (08:11)
[2018-03-18] MEDS: ALPRAZolam 1 MG TAB PO SCH (08:11)
[2018-03-18] MEDS: Dronedarone HCl 400 MG TAB PO SCH (08:11)
[2018-03-18] MEDS: metroNIDAZOLE 500 MG TAB PO SCH (08:13)
[2018-03-18] MEDS: Potassium Chloride 20 MEQ TAB PO SCH (08:13)
[2018-03-18] MEDS: Metoprolol Tartrate 25 MG TAB PO SCH (08:14)
[2018-03-18] MEDS: Rivaroxaban 15 MG TAB PO SCH (08:17)
[2018-03-18] MEDS: Famciclovir 500 MG TAB PO SCH (08:25)
[2018-03-18] MEDS: Vancomycin HCl 25 MG/ML Oral PO SCH ×2 (10:08→12:27)
--- NOTE | 2018-03-20 12:35 | DIS ---
DATE OF ADMISSION: 03/15/2018 DATE OF DISCHARGE: 03/18/2018 CHIEF COMPLAINT ON ADMISSION: Diarrhea and dehydration. History and physical have previously been dictated. I will resume from there with hospital course. HOSPITAL COURSE: The patient was admitted to a medical bed and placed, and IV fluid rehydration begu n. Labs were sent for stool studies. Her usual home medicines were continued. By 03/15/2018, she h ad rested well. Her stool studies had returned back positive for C. diff and positive for occult blo od. She was also noted to have a UTI, and cultures are pending on that. IV vancomycin was started. Over the next 24 hours, she continued to feel better. She remained afebrile with stable vital signs . Urine culture was returning positive culture for gram negative aren. Her abdominal pain was easing up. The patient only had 3 loose stools that particular day. We continued her IV vancomycin at mart t time. By 03/17/2018, she was alert. The diarrhea was even less. Exam was unremarkable. Her abdo men being nontender. We converted all her medicine to p.o. medications, and by 03/18/2018, she was a ble to be discharged home in stable condition. Her medications at the time of discharge included a p rescription for Omnicef 300 b.i.d. #10, metronidazole 500 t.i.d. #30, vancomycin HCL 125 mg q.i.d. fo r 10 more days, a regular strength Tylenol p.r.n. headache. DIAGNOSES AT THE TIME OF DISCHARGE: C. difficile colitis, urinary tract infection, dehydration, reso lved, generalized anxiety disorder. During hospitalization, she suffered a fall with contusion to he r wrist. X-rays were negative. To prepare for discharge, the chart was reviewed, the patient examined, all her questions were answer ed, complete reconciliation of all her medications was performed and then the prescriptions were writ ten on that dictation. The time required for this was 40 minutes and she is discharged in stable con dition. She was also noted to have some mild chronic renal insufficiency stage 2. She will follow u p with Dr. Fan for reassessment in 1-2 weeks.
== END 2018-03-18 12:46 | disposition home or self-care (01) | DRG 372 ==
LOC: INTOOBSV 15:25 → 2SW 15:25 → OBSVTOIN 03-15 11:49 → T4-B 03-15 14:41
PROVIDERS: ADMIT Specialist; ATTEND Specialist
DX: A04.72 Enterocolitis due to Clostridium difficile, not specified as recurrent (principal); N39.0 Urinary tract infection, site not specified; I48.91 Unspecified atrial fibrillation; E86.0 Dehydration; K92.2 Gastrointestinal hemorrhage, unspecified; D64.9 Anemia, unspecified; E03.9 Hypothyroidism, unspecified; F32.9 Major depressive disorder, single episode, unspecified; F41.9 Anxiety disorder, unspecified; I12.9 Hypertensive chronic kidney disease with stage 1 through stage 4 chronic kidney disease, or unspecified chronic kidney disease; Z79.01 Long term (current) use of anticoagulants; N18.2 Chronic kidney disease, stage 2 (mild)
CPT/HCPCS: 36415; 80048; 80053; 80202; 81001; 85014; 85018; 85025; 85049; 86038; 86225; 86900; 86901; 87086; 87324; 87328; 87329; 87449; A4216; J0696; J3370; J7050

== ENCOUNTER 2018-04-21 12:36 | Outpatient (CLI) | payer MEDICARE ==
--- NOTE | 2018-04-21 13:15 | CT ---
CT BRAIN WITHOUT CONTRAST: HISTORY: Stroke-like symptoms. Evaluate for TIA. COMPARISON: 10/21/2017 TECHNIQUE: Multiple contiguous axial images were obtained in a CT of the brain without contrast. FINDINGS: There are scattered hypodensities in the subcortical and periventricular white matter, likely seconda ry to small vessel ischemic disease. No large confluent infarction is seen. There is no evidence of hydrocephalus, intracranial hemorrhage, or extraaxial fluid collection. The calvarium and overlying soft tissues are unremarkable. The visualized paranasal sinuses and mast oid air cells are well aerated. IMPRESSION: 1. No evidence of acute intracranial abnormality. 2. Small vessel ischemic disease. POS: [facility]
== END 2018-04-21 12:37 | disposition home or self-care (01) ==
LOC: CT 12:36
PROVIDERS: ATTEND Nurse Practitioner Family
DX: I67.82 Cerebral ischemia (principal)
CPT/HCPCS: 70450

== ENCOUNTER 2019-03-16 10:18 | Inpatient (IN) | payer MEDICARE ==
[2019-03-16] MEDS ORDERED: HYDROcodone/Acetaminophen 5/325 mg Tablet ONE (11:14)
[2019-03-16 11:42] LABS: #Eosinphils 0.2 thou/uL (0.0-0.7); #Lymphocytes 1.2 thou/uL (1.20-3.40); #Monocytes 0.9 thou/uL (0.11-0.59); #Neutrophils 3.9 thou/uL (1.40-6.50); %Basophils 0.1 % (0.0-1.0); %Eosinophils 3.7 % (0.0-10.0); %Lymphocytes 19.7 % (21.0-51.0); %Monocytes 14.5 % (0.0-10.0); Hemoglobin 6.2 g/dL (12.0-16.0); Mean Corpuscular HGB CONC 31.7 g/dL (32.0-36.0); Mean Corpuscular Hemoglobin 27.1 pg (27.0-31.0); Mean Corpuscular Volume 85.6 fL (78.0-98.0); Mean Platelet Volume 7.9 fL (7.4-10.4); Platelet Count 264 thou/uL (130-400); RBC Distribution Width 16.6 % (11.5-14.5); Red Blood Cell (RBC) Count 2.27 mill/uL (4.20-5.40); White Blood Cell (WBC) Count 6.2 thou/uL (4.8-10.8)
--- NOTE | 2019-03-16 11:45 | RAD ---
Exam:Right elbow 4 views HISTORY: Pain. Swelling. COMPARISON: None FINDINGS: There appears to be a joint effusion. No erosive or destructive changes. No fracture. Joint spaces are preserved. There is soft tissue swelling. IMPRESSION: Joint effusion. Soft tissue swelling.
[2019-03-16 12:05] LABS: ALT (SGPT) Less than 7 U/L (8-55); AST (SGOT) 10 U/L (5-34); Alkaline Phosphatase 96 U/L (40-150); Anion Gap 10 mmol/L (10-20); BUN (Urea Nitrogen) 15 mg/dL (9.8-20.1); Bilirubin, Total 0.4 mg/dL (0.2-1.2); CK (CPK) 54 U/L (29-168); CRP (Inflammatory) 6.86 mg/dL (= or < 0.5); Calc. Creatinine Clearance 0 mL/min (70-130); Calcium 8.3 mg/dL (7.8-10.44); Carbon Dioxide 22 mmol/L (23-31); Chloride 111 mmol/L (98-107); Estimated GFR-MDRD 59; Globulin 3.5 g/dL (2.4-3.5); Glucose 78 mg/dL (83-110); Potassium 3.9 mmol/L (3.5-5.1); Protein, Total 6.5 g/dL (6.0-8.3); Sodium 139 mmol/L (136-145)
[2019-03-16] MEDS ORDERED: Lidocaine 1% (PF) 30 ML VIAL ONE (13:51)
[2019-03-16 16:37] LABS: BF Color Yellow; Body Fluid Source Synovial Fluid; Clarity Cloudy/Turbid (Clear); Tube # EDTA
[2019-03-16 16:38] LABS: RBC Count-Automated 34000 /cumm; WBC Background Count 0.01; WBC/NonHematic-Auto 28800 /cumm
[2019-03-16] MEDS ORDERED: Aspirin Chewable 81 MG TAB ONE (17:01)
[2019-03-16 17:13] LABS: BF Segmented Neutrophils 95 %; Cell Count Non Hematic 5 %
[2019-03-16] MEDS ORDERED: Acetaminophen 325 MG TAB PO PRN (20:07)
[2019-03-16] MEDS ORDERED: Ondansetron PF 4 MG/2 ML Vial IVP PRN (20:07)
[2019-03-16] MEDS ORDERED: Ondansetron ODT 4 MG TAB SL PRN (20:07)
[2019-03-16] MEDS: Sodium Chloride 0.9% 1,000 ML IV SCH (21:00)
[2019-03-16] MEDS: Metoprolol Tartrate 25 MG TAB PO SCH (21:00)
[2019-03-16] MEDS: ALPRAZolam 1 MG TAB PO SCH (23:13)
[2019-03-16] MEDS: Promethazine 25 MG TAB PO SCH (23:35)
[2019-03-16 23:43] VITALS: BMI 21.4
[2019-03-17 01:18] LABS: Bilirubin Negative (Negative); Blood, Urine Moderate (Negative); Clarity CLOUDY (Clear); Glucose, Urine (Dipstick) Negative (Negative); Leukocyte Large (Negative); Nitrite Positive (Negative); Protein, Urine (Dipstick) 30 mg/dL (Neg-Trace); Specific Gravity, Urine 1.011 (1.002-1.036); Urobilinogen 0.2 mg/dL (0.2-1.0)
[2019-03-17 01:21] LABS: Bacteria/HPF 4+ HPF (None Seen); Pathc Cast-AUWi Flag 2.08 (0-2.49); Squamous Epithelial 0-3 HPF (0-3)
--- NOTE | 2019-03-17 01:24 | HP ---
CHIEF COMPLAINT ON ADMISSION: Septic arthritis with GI bleed and anemia. HISTORY OF PRESENT ILLNESS: The patient is a 78-year-old female who has been feeling weaker and weaker over the past several weeks, but in the last two days, she began to have acute pain in her right elbow; over the last day, it began to radiate down her arm and affect her fingers and hand. The pain became so intense that she cannot bear it or touch it and came in to Dr. Fan' office for evaluation. There, it was noted that she had hot elbow, hot wrist, and hot right thumb. Due to the presentation with possible chills and fever, she was sent to the ER for further evaluation. In the ER at [facility], the joint was tapped and turbulent fluid was withdrawn, loaded with neutrophils and vancomycin was begun. She was noted in the ER also to have a hemoglobin of 6.2 and hematocrit of 19.4, and the Hemoccult was positive for blood. She has a history of atrial fibrillation, has been on Xarelto and has had GI bleeds in the past. 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 Buck. 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 Chronic recurrent UTIs with multiple antibiotic allergies. PAST SURGICAL HISTORY: Includes bladder suspension, abdominal hysterectomy, elective oophorectomy, appendectomy, tonsillectomy, urostomy, and cholecystectomy. ALLERGIES: HER ALLERGIES FOR THE PRESENT ARE SULFA, LEVAQUIN, DARVON, BUT THERE ARE MANY OTHERS INCLUDING CEPHALOSPORINS. MEDICATIONS: On admission include; 1. Trintellix 20 mg daily. 2. Xanax 1 mg t.i.d. 3. Xarelto 15 mg daily. 4. Metoprolol tartrate 25 mg, which she takes half b.i.d. 5. Protonix 40 mg daily. 6. Promethazine 25 mg at bedtime. 7. Levothyroxine 88 mcg daily. FAMILY HISTORY: Noncontributory. SOCIAL HISTORY: She is . Does not smoke or drink alcoholic beverages. REVIEW OF SYSTEMS: GENERAL: Admits to recent fatigue, weakness, fever, chills. HEENT: Denies diplopia, blurred vision, drainage from ears, eyes, nose, or throat, or any open sores. CHEST: Denies shortness of breath or coughing. CARDIOVASCULAR: Denies palpitations or chest pain. ABDOMEN: Denies nausea, vomiting, or diarrhea. : Denies dysuria; currently, she has noticed blood in her stool. Denies blood in her urine. MUSCULOSKELETAL: Severe right elbow pain, right wrist pain, and right thumb pain with erythema, heat, tenderness, and painful range of motion. SKIN: No acute rashes or lesions aside from those associated with the inflamed joints. NEUROLOGIC: Denies headaches, trouble with mentation, any areas of hypesthesia or anesthesia. PHYSICAL EXAMINATION: VITAL SIGNS: At the time of admission, she is currently afebrile. Vital signs are stable. GENERAL: This is an elderly female, alert, oriented, and cooperative. HEENT: Normocephalic, atraumatic. Pupils are equal, round, and reactive to light at 1-2 mm with arcus senilis bilaterally. TMs, nares, pharynx are clear. Pharynx is somewhat dry. NECK: Supple. Trachea midline. No mass. No bruit. CHEST: Clear to auscultation. BREAST: Deferred. HEART: Regular rate and rhythm without murmur. ABDOMEN: Soft, nontender. No appreciable organomegaly or tenderness. : Deferred. EXTREMITIES: Without clubbing, cyanosis, or edema. The right upper extremity shows heat at the right elbow, heat at the right wrist, heat at the right thumb with painful palpation, redness, and tenderness. SKIN: Without acute rashes or lesions. Poor turgor generally. NEUROLOGIC: Cranial nerves are intact. Gait and cerebellar function not tested. Sensory exam is intact. Mental status is nonfocal and intact. LABORATORY DATA: X-rays of the right elbow show a joint effusion and soft tissue swelling. The WBCs are 6.2, hemoglobin 6.2, hematocrit 19.4 with platelets of 264. Sodium 139, potassium 3.9, chloride 111, CO2 of 22, BUN 15, creatinine 0.92 with a glucose of 78. Urinalysis, it is missing at this time, but she does have body fluid from the aspirated joint. This is described as cloudy, turbid with WBCs of 28,000, rbc's 34 with a seg neutrophil count at 95%. ASSESSMENT: Thus far is; 1. Septic right elbow. 2. Gastrointestinal bleed. 3. Severe anemia. PLAN: Will be admission, transfusion, IV antibiotics. Infectious Disease consultation to ensure coverage and serial re-evaluation and pain management. Job ID: [id number]
[2019-03-17 01:35] LABS: Hyaline Casts/LPF NONE SEEN LPF (0-3 Hyaline)
[2019-03-17 01:36] LABS: Crystals/HPF 2+ TRIPLE PHOS HPF (Negative)
[2019-03-17] MEDS ORDERED: Diphenoxylate HCl/Atropine Tablet PO PRN (02:05)
[2019-03-17] MEDS: Sodium Chloride 0.9% 1,000 ML IV SCH ×3 (06:00→20:01)
[2019-03-17] MEDS: Levothyroxine Sodium 88 MCG TAB PO SCH (06:01)
[2019-03-17 06:58] LABS: Anion Gap 10 mmol/L (10-20); BUN (Urea Nitrogen) 13 mg/dL (9.8-20.1); Calc. Creatinine Clearance 48 mL/min (70-130); Calcium 7.8 mg/dL (7.8-10.44); Carbon Dioxide 19 mmol/L (23-31); Chloride 115 mmol/L (98-107); Estimated GFR-MDRD 72; Glucose 65 mg/dL (83-110); Potassium 3.9 mmol/L (3.5-5.1); Sodium 140 mmol/L (136-145)
[2019-03-17 07:24] LABS: #Eosinphils 0.3 thou/uL (0.0-0.7); #Lymphocytes 1.2 thou/uL (1.20-3.40); #Monocytes 0.6 thou/uL (0.11-0.59); %Basophils 0.5 % (0.0-1.0); %Eosinophils 6.6 % (0.0-10.0); %Monocytes 11.6 % (0.0-10.0); %Neutrophils 58.4 % (42.0-75.0); Hemoglobin 8.9 g/dL (12.0-16.0); Mean Corpuscular HGB CONC 34.5 g/dL (32.0-36.0); Mean Corpuscular Hemoglobin 31.1 pg (27.0-31.0); Mean Corpuscular Volume 90.1 fL (78.0-98.0); Mean Platelet Volume 8.3 fL (7.4-10.4); Platelet Count 235 thou/uL (130-400); RBC Distribution Width 16.6 % (11.5-14.5); Red Blood Cell (RBC) Count 2.88 mill/uL (4.20-5.40); White Blood Cell (WBC) Count 5.1 thou/uL (4.8-10.8)
[2019-03-17] MEDS ORDERED: Citalopram 20 MG TAB PO SCH (09:00)
[2019-03-17] MEDS: ALPRAZolam 1 MG TAB PO SCH ×2 (09:56→20:02)
[2019-03-17] MEDS: Metoprolol Tartrate 25 MG TAB PO SCH (09:56)
[2019-03-17] MEDS ORDERED: Ondansetron ODT 4 MG TAB PO PRN (14:21)
[2019-03-17] MEDS ORDERED: Dronedarone HCl 400 MG TAB PO SCH (14:30)
[2019-03-17] MEDS ORDERED: Vancomycin HCl 500 MG in Sodium Chloride 0.9% 100 ML IVPB SCH (15:00)
[2019-03-17] MEDS ORDERED: FAMCICLOVIR 500 MG PO SCH (15:15)
[2019-03-17 17:42] LABS: Iron Binding Capacity, Total 290 mcg/dL (265-497)
[2019-03-17 17:43] LABS: Iron 17 ug/dL (50-170)
[2019-03-17 18:23] LABS: Folate (Folic Acid) 10.8 ng/mL (7.0-31.4)
[2019-03-17] MEDS: Promethazine 25 MG TAB PO SCH (20:01)
[2019-03-17] MEDS: Carvedilol 3.125 MG TAB PO SCH (20:01)
--- NOTE | 2019-03-17 23:07 | CON ---
DATE OF CONSULTATION: 03/17/2019 CHIEF COMPLAINT: Weakness and elbow pain. HISTORY OF PRESENT ILLNESS: Ms. Mak is a 78-year-old woman who has had progressive weakness of the last several days, but came to the emergency room yesterday due to pain in her elbow. She was found to have septic arthritis and has been started on antibiotics for that. She has a history of a ureterostomy and was found to have urinary tract infection as well. During the workup of this in the emergency room, she had lab test done that revealed a severe anemia with hemoglobin of 6.2. She does report red blood on the toilet paper intermittently. She has chronic diarrhea and has several bowel movements per day with watery brown stool and loose brown stools. She has had rare blood streaking of the stool, primarily the only blood that she has seen from the GI tract is on the toilet paper. She has not had abdominal pain, but she does have a history of gastric resection with antrectomy and subtotal gastrectomy due to the gastric obstruction from Liao band which was placed years ago for weight loss. In the past, she weighed over 300 pounds and had the Liao band surgery. As with many of the surgical procedures delayed results, she had complications with a gastric obstruction and ultimately required a gastric resection. She has had chronic diarrhea and this is being controlled with Lomotil a couple of tablets several times per day for years. She also has a history of Wright esophagus, which has been followed by Dr. Gee and her last endoscopy with biopsies of the Wright's was in November of 2017. There was no dysplasia and actually with the most recent biopsies, no significant Wright's was seen. Her last colonoscopy was back in October of 2014, at which time a 7 mm polyp was removed from the cecum that was confirmed to be an adenoma by histopathology. Colonoscopy was otherwise unremarkable. Random biopsies from the colon at that time were negative for microscopic colitis. Small bowel biopsies from the duodenum were negative for celiac disease. PAST MEDICAL HISTORY: Atrial fibrillation, on Xarelto. Her last dose of Xarelto was last night. History of chronic diarrhea as mentioned above, hypothyroidism, Wright's esophagus, history of DVT and PE, ureterostomy, history of genital herpes, history of chronic recurrent urinary tract infections. PAST SURGICAL HISTORY: Bladder suspension, hysterectomy, oophorectomy, appendectomy, tonsillectomy, urostomy, cholecystectomy. FAMILY HISTORY: Negative for GI malignancy. SOCIAL HISTORY: No alcohol, tobacco, or drugs. ALLERGIES: SULFA, LEVOFLOXACIN, DOXYCYCLINE, IBUPROFEN, NITROFURANTOIN, SIMVASTATIN, SULFA. MEDICATIONS: Current inpatient medications include; 1. Carvedilol. 2. Multaq. 3. Levothyroxine. 4. Oxybutynin. 5. Pantoprazole. 6. Famciclovir. 7. Promethazine as scheduled. 8. Spironolactone. 9. Trintellix. 10. Vancomycin. REVIEW OF SYSTEMS: Negative x10 systems reviewed except as stated in history of present illness. PHYSICAL EXAMINATION: VITAL SIGNS: Temperature is 98, pulse 93, blood pressure 151/68. GENERAL: She is in no acute distress. Alert and oriented x3. HEENT: Eyes have no scleral icterus. Oropharynx is clear without lesions. No cervical or supraclavicular lymphadenopathy. LUNGS: Clear to auscultation bilaterally. HEART: Regular rate and rhythm without murmur. ABDOMEN: Soft, nontender, and nondistended. Bowel sounds are present. EXTREMITIES: No lower extremity edema. She has ostomy in the right abdomen. LABORATORY DATA: White blood cell count 5.1, hemoglobin is 8.9 today after 2 units transfusion, hemoglobin prior to transfusion yesterday was 6.2, platelets 235. INR 1.3, creatinine 0.78, bilirubin 0.4, AST 10, ALT 7, alkaline phosphatase 96. MCV is 90.9. IMPRESSION: 1. Severe anemia without significant overt gastrointestinal bleeding. She does have blood on the toilet paper intermittently. We will check iron studies and B12 and folic acid. She has had a prior antrectomy and subtotal gastrectomy, is at risk for B12 and iron deficiency. 2. Chronic diarrhea. This could be related to dumping syndrome given her prior gastric surgery. Other possibilities could include small-bowel bacterial overgrowth or other source. I would check stool studies at this point. She has had prior biopsies of her duodenum. They were negative for celiac disease and colon biopsies were negative for microscopic colitis. 3. Atrial fibrillation, on Xarelto. Her last dose was last night. RECOMMENDATIONS: 1. We will plan for EGD and colonoscopy on Tuesday after holding the Xarelto today and tomorrow. She has had red blood from the GI tract and presented with severe anemia. She could have had slow gradual blood loss over time or have issues with absorption or another source other than GI. 2. Blood test for iron and B12 and folate as stated above. 3. Check stool studies. 4. Xarelto is held. Please note that she has been on multiple courses of antibiotics for chronic recurrent urinary tract infections, which does affect the diarrhea evaluation. She has had chronic diarrhea for years and Dr. Gee has kept her reasonably well controlled with Lomotil high doses. Job ID: [id number]
[2019-03-18] MEDS: Levothyroxine Sodium 88 MCG TAB PO SCH (05:11)
[2019-03-18] MEDS: Sodium Chloride 0.9% 1,000 ML IV SCH ×2 (05:12→15:22)
[2019-03-18] MEDS: Spironolactone 25 MG TAB PO SCH (09:10)
[2019-03-18] MEDS: Oxybutynin ER 5 MG TAB PO SCH (09:10)
[2019-03-18] MEDS: Dronedarone HCl 400 MG TAB PO SCH ×2 (09:10→16:41)
[2019-03-18] MEDS: ALPRAZolam 1 MG TAB PO SCH ×2 (09:11→21:22)
[2019-03-18] MEDS: TRINTELLIX PO SCH (09:12)
[2019-03-18] MEDS: FAMCICLOVIR 500 MG PO SCH (09:13)
[2019-03-18 11:04] LABS: #Eosinphils 0.3 thou/uL (0.0-0.7); #Lymphocytes 1.3 thou/uL (1.20-3.40); #Monocytes 0.6 thou/uL (0.11-0.59); #Neutrophils 2.3 thou/uL (1.40-6.50); %Basophils 0.7 % (0.0-1.0); %Eosinophils 7.5 % (0.0-10.0); %Monocytes 12.1 % (0.0-10.0); %Neutrophils 50.7 % (42.0-75.0); Hemoglobin 9.1 g/dL (12.0-16.0); Mean Corpuscular HGB CONC 32.7 g/dL (32.0-36.0); Mean Corpuscular Hemoglobin 29.9 pg (27.0-31.0); Mean Corpuscular Volume 91.4 fL (78.0-98.0); Mean Platelet Volume 8.5 fL (7.4-10.4); Platelet Count 239 thou/uL (130-400); RBC Distribution Width 17.5 % (11.5-14.5); Red Blood Cell (RBC) Count 3.06 mill/uL (4.20-5.40); White Blood Cell (WBC) Count 4.5 thou/uL (4.8-10.8)
[2019-03-18 14:41] LABS: Vancomycin, Trough 7.2 ug/mL
[2019-03-18] MEDS ORDERED: GoLYTELY 4,000 ml Bottle PO SCH (15:00)
[2019-03-18] MEDS: Vancomycin HCl 750 MG in Sodium Chloride 0.9% 250 ML 250 ML IVPB SCH (15:21)
--- NOTE | 2019-03-18 16:00 | PRG ---
DATE OF SERVICE: 03/18/2019 SUBJECTIVE: Ms. Mak has had no overt bleeding today. She is tolerating her liquid diet. OBJECTIVE: VITAL SIGNS: Temperature 98.3, pulse 80, and blood pressure 112/64. GENERAL: She is in no acute distress. Alert and oriented x3. LUNGS: Clear to auscultation bilaterally. HEART: Regular rate and rhythm without murmur. ABDOMEN: Soft, nontender, and nondistended. Bowel sounds are present. EXTREMITIES: No lower extremity edema. LABORATORY DATA: Hemoglobin is 9.1. Iron 17, TIBC 290, ferritin 36, B12 of 223. IMPRESSION: 1. Severe anemia, which is likely multifactorial. She has had some blood on the toilet paper, but not a lot of significant overt gastrointestinal bleeding. Her iron is low and her B12 is at the lower limits of normal. These both will need to be supplemented. The B12 will need to be given subcu given her prior gastric bypass surgery. 2. Chronic diarrhea. 3. History of Wright esophagus. 4. History of colon polyps. RECOMMENDATIONS: EGD and colonoscopy tomorrow. She is receiving bowel prep today. Job ID: [id number]
--- NOTE | 2019-03-18 16:44 | CON ---
DATE OF CONSULTATION: REASON FOR CONSULTATION: Inflammatory arthropathy, right elbow and right wrist. HISTORY OF PRESENT ILLNESS: A 78-year-old with history of chronic diarrhea with uncertain diagnosis, atrial fibrillation and prior esophageal stricture as well as recurrent deep vein thrombosis, who has history of bladder suspension and incontinence, which failed multiple management options including an artificial urinary sphincter. She underwent ileal conduit placement in [place], approximately 7-8 years ago. Over the past few days, she developed worsening pain in the right elbow and then right wrist, was seen by Dr. Fan and then admitted, had arthrocentesis, and the results of the fluid analysis are described below. She has been started on IV vancomycin. Currently, she is awake. Pain has improved. She still has moderate pain at the right elbow and wrist. No headaches, visual symptoms, sore throat, odynophagia, or dysphagia. No cough, sputum production, or chest pain. No dyspnea. No abdominal pain. Still with intermittent loose stool. No ileal conduit problems. No other joint symptoms. PAST MEDICAL HISTORY: 1. Atrial fibrillation, on Xarelto. 2. Chronic diarrhea of uncertain etiology. 3. Hypothyroidism. 4. Esophageal stricture. 5. GERD. 6. Prior DVT with pulmonary embolism. 7. Gastric banding, which led to obstruction and deflation and removal of gastric band. 8. Ileal conduit placement for management of severe incontinence after failure of multiple other options. 9. Herpes simplex. ALLERGIES: 1. SULFA. 2. LEVAQUIN. 3. CEPHALOSPORINS. MEDICATIONS: 1. Trintellix. 2. Xanax. 3. Xarelto. 4. Metoprolol. 5. Protonix. 6. Promethazine. 7. Levothyroxine. FAMILY HISTORY: Noncontributory. SOCIAL HISTORY: Never smoker. . PHYSICAL EXAMINATION: VITAL SIGNS: T-max 98.7, blood pressure 112/64, pulse 80, respirations 18, and O2 saturation 94%. SKIN: Not remarkable. She has a peripheral IV access and ileal conduit in the right side of the abdomen. No lymphadenopathy. HEENT: Ocular movements conjugate. Pupils are equal. Conjunctivae normal. Nasal passages patent. Oral cavity, normal. Dentures, artificial dentures. NECK: Supple. No jugular vein distention. No carotid bruits. LUNGS: Symmetric. Clear breath sounds. CARDIAC: S1 and S2. Irregular rate. No obvious murmurs. No S3. ABDOMEN: Soft, not distended or tender. EXTREMITIES: Right elbow has some limitation of range of motion, is a little bit swollen. Right wrist is quite tender to palpation and range of motion. No metacarpophalangeal inflammatory changes noted in either hand. No other joint inflammatory process noted. Pulses are 1+ in dorsalis pedis. Moves extremities equally with limitations imposed by the right upper extremity joint inflammatory process. NEUROLOGIC: Cognitive function appears to be intact. LABORATORY DATA: White cell count was 6.2 and now is 4.5, hemoglobin 9.1, and platelets 239 with a normal differential. Creatinine 0.78. Bilirubin normal, AST 10, ALT less than 7, and alkaline phosphatase 96. CRP 6.86, this is the only CRP in the record. Albumin 3.0. Iron 17 and TIBC 290. Hemoglobin was 6.2 on arrival and MCV 85. Synovial fluid with 28,000 wbc's, predominance of mature neutrophils. The interpretation of the pathology is pending in reference to the presence of crystals. A wrist x-ray demonstrated chronic changes, demineralization noted. Elbow x-ray with joint effusion, soft tissue swelling. The last uric acid from 2014 was 3.5. ASSESSMENT: 1. Atrial fibrillation, on Xarelto. 2. Prior deep vein thrombosis. 3. Pulmonary embolism. 4. Chronic diarrhea of uncertain etiology. 5. Severe anemia, normocytic with normal B12, although it is in the low side of normal and a low iron total. She has had negative TONY in 2018 and a negative tissue transglutaminase, IgA less than 2. DISCUSSION: Differential diagnosis includes infectious versus inflammatory, noninfectious causes of arthropathy. If the cultures remain negative, then we would have to assess for the possibility of noninfectious causes, starting with crystal induced arthropathy, gout, and pseudogout and then add-aqinugu-gqdeodmyon arthropathy; for example, autoimmune syndromes. I tend to favor the hypothesis of noninfectious etiology, but we will see what the cultures demonstrate. Job ID: [id number]
[2019-03-18] MEDS ORDERED: ALPRAZolam 1 MG TAB PO PRN (18:08)
[2019-03-18] MEDS: Promethazine 25 MG TAB PO SCH (21:22)
[2019-03-18] MEDS: Carvedilol 3.125 MG TAB PO SCH (21:22)
[2019-03-18] MEDS: HYDROcodone/Acetaminophen 5/325 mg Tablet PO PRN (22:05)
[2019-03-19] MEDS: Sodium Chloride 0.9% 1,000 ML IV SCH ×3 (04:50→18:40)
[2019-03-19] MEDS: Levothyroxine Sodium 88 MCG TAB PO SCH (05:12)
[2019-03-19 06:14] LABS: #Eosinphils 0.3 thou/uL (0.0-0.7); #Lymphocytes 1.4 thou/uL (1.20-3.40); #Monocytes 0.6 thou/uL (0.11-0.59); #Neutrophils 2.6 thou/uL (1.40-6.50); %Basophils 0.4 % (0.0-1.0); %Lymphocytes 28.7 % (21.0-51.0); %Monocytes 11.2 % (0.0-10.0); %Neutrophils 52.8 % (42.0-75.0); Hemoglobin 8.9 g/dL (12.0-16.0); Mean Corpuscular HGB CONC 33.9 g/dL (32.0-36.0); Mean Corpuscular Hemoglobin 30.5 pg (27.0-31.0); Mean Corpuscular Volume 90.1 fL (78.0-98.0); Platelet Count 284 thou/uL (130-400); RBC Distribution Width 17.4 % (11.5-14.5); Red Blood Cell (RBC) Count 2.92 mill/uL (4.20-5.40); White Blood Cell (WBC) Count 4.9 thou/uL (4.8-10.8)
[2019-03-19 06:27] LABS: Anion Gap 9 mmol/L (10-20); BUN (Urea Nitrogen) 5 mg/dL (9.8-20.1); Calc. Creatinine Clearance 54 mL/min (70-130); Calcium 7.8 mg/dL (7.8-10.44); Carbon Dioxide 19 mmol/L (23-31); Chloride 117 mmol/L (98-107); Estimated GFR-MDRD 81; Potassium 3.9 mmol/L (3.5-5.1); Sodium 141 mmol/L (136-145)
[2019-03-19 06:30] LABS: Glucose 56 mg/dL (83-110)
[2019-03-19] MEDS: Dextrose 5 % And 0.9 % NaCl 1,000 ML IV SCH (07:10)
[2019-03-19] MEDS: FAMCICLOVIR 500 MG PO SCH ×2 (08:10→12:30)
[2019-03-19] MEDS: Spironolactone 25 MG TAB PO SCH ×2 (08:10→12:29)
[2019-03-19] MEDS: TRINTELLIX PO SCH ×2 (08:10→12:29)
[2019-03-19] MEDS: Oxybutynin ER 5 MG TAB PO SCH ×2 (08:10→12:29)
[2019-03-19] MEDS: ALPRAZolam 1 MG TAB PO SCH ×2 (08:10→20:07)
[2019-03-19] MEDS: Dronedarone HCl 400 MG TAB PO SCH ×2 (08:10→17:06)
[2019-03-19] MEDS ORDERED: Ondansetron HCl/PF 4 MG/2 ML Vial IVP PRN (09:11)
--- NOTE | 2019-03-19 11:42 | OP ---
DATE OF PROCEDURE: 03/19/2019 PROCEDURES PERFORMED: Esophagogastroduodenoscopy with biopsy and colonoscopy with biopsy. PREOPERATIVE DIAGNOSES: Iron deficiency anemia and multifactorial anemia. Also hematochezia. 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 DESCRIPTION OF PROCEDURE: Informed consent was obtained from the patient. She was sedated with total intravenous anesthesia. The bite block was placed and the endoscope was advanced easily to the small intestine. The esophagus was normal overall. There were 2 tongues of suspected Wright's measuring 1 cm at maximum length. These were biopsied. There was a small stomach remnant, which had normal mucosa. The gastrojejunal anastomosis was opened, appeared healthy. There were several centimeters of the small intestine, which then encountered again another anastomosis, which went to a short stump through 1 opening and then, the small intestine through the other opening. There was bile in this area. Biopsies were obtained from the small bowel to rule out celiac disease. Biopsies were obtained from the area of possible short-segment Wright's. The air was suctioned from the stomach and the patient was turned around. Rectal exam was performed and was normal. The colonoscope was advanced to the terminal ileum. There was some difficulty negotiating a fixed sigmoid. The terminal ileum was visualized for short distance and appeared unremarkable. The ileocecal valve and appendiceal orifice were clearly identified. The preparation quality was adequate overall. The colonic mucosa was normal throughout. Biopsies were taken from the ascending colon and sigmoid colon to rule out microscopic colitis. The retroflexed views in the rectum were unremarkable. IMPRESSION: 1. Subtotal gastrectomy. 2. 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 Biopsied. 3. Otherwise unremarkable upper endoscopy with biopsies of the small bowel to evaluate for celiac disease. 4. Normal colonoscopy to the terminal ileum. Random biopsies taken to rule out microscopic colitis. 5. Chronic diarrhea. The differential is broad at this point and does include small bowel bacterial overgrowth and malabsorption. RECOMMENDATIONS: 1. Await histopathology. 2. Follow up in GI clinic. Capsule endoscopy will likely be of low yield for further evaluation of the anemia. I would supplement iron and B12 and evaluate the diarrhea further first. 3. We can advance her diet and she can potentially discharge home today as her hemoglobin has been stable. Job ID: [id number]
[2019-03-19] MEDS: Vancomycin HCl 750 MG in Sodium Chloride 0.9% 250 ML 250 ML IVPB SCH (15:04)
[2019-03-19] MEDS ORDERED: PROPOFOL 200 MG/20 ML VIAL ONE (16:37)
[2019-03-19] MEDS: Carvedilol 3.125 MG TAB PO SCH (20:07)
[2019-03-19] MEDS: Promethazine 25 MG TAB PO SCH (22:15)
[2019-03-20] MEDS: HYDROcodone/Acetaminophen 5/325 mg Tablet PO PRN (00:14)
[2019-03-20] MEDS: Dextrose 5 % And 0.9 % NaCl 1,000 ML IV SCH (03:49)
[2019-03-20] MEDS: Levothyroxine Sodium 88 MCG TAB PO SCH (05:54)
[2019-03-20 06:23] LABS: %Basophils 0.3 % (0.0-1.0)
[2019-03-20 06:47] LABS: #Eosinphils 0.3 thou/uL (0.0-0.7); #Lymphocytes 2.3 thou/uL (1.20-3.40); #Monocytes 0.8 thou/uL (0.11-0.59); #Neutrophils 4.2 thou/uL (1.40-6.50); %Eosinophils 4.3 % (0.0-10.0); %Lymphocytes 29.7 % (21.0-51.0); %Monocytes 10.2 % (0.0-10.0); %Neutrophils 55.6 % (42.0-75.0); Hemoglobin 8.4 g/dL (12.0-16.0); Mean Corpuscular HGB CONC 33.4 g/dL (32.0-36.0); Mean Corpuscular Hemoglobin 30.5 pg (27.0-31.0); Mean Corpuscular Volume 91.4 fL (78.0-98.0); Mean Platelet Volume 7.9 fL (7.4-10.4); Platelet Count 293 thou/uL (130-400); RBC Distribution Width 18.7 % (11.5-14.5); Red Blood Cell (RBC) Count 2.74 mill/uL (4.20-5.40); White Blood Cell (WBC) Count 7.6 thou/uL (4.8-10.8)
[2019-03-20] MEDS: Oxybutynin ER 5 MG TAB PO SCH (08:51)
[2019-03-20] MEDS: Spironolactone 25 MG TAB PO SCH (08:52)
[2019-03-20] MEDS: ALPRAZolam 1 MG TAB PO SCH (08:52)
[2019-03-20] MEDS: Dronedarone HCl 400 MG TAB PO SCH (08:52)
[2019-03-20] MEDS: TRINTELLIX PO SCH (08:53)
[2019-03-20] MEDS: FAMCICLOVIR 500 MG PO SCH (08:53)
[2019-03-20 12:48] VITALS: BP 136/74; TEMP 97.9
== END 2019-03-20 12:52 | disposition home or self-care (01) | DRG 549 ==
LOC: ERS 10:18 → ERHOLD 17:37 → T4-B 20:09
PROVIDERS: ADMIT Specialist; ATTEND Specialist
PROC: 0R9L3ZX Drainage of Right Elbow Joint, Percutaneous Approach, Diagnostic (ICD-10-PCS; principal; 2019-03-16)
PROC: 30233N1 Transfusion of Nonautologous Red Blood Cells into Peripheral Vein, Percutaneous Approach (ICD-10-PCS; 2019-03-16)
PROC: 0DB18ZX Excision of Upper Esophagus, Via Natural or Artificial Opening Endoscopic, Diagnostic (ICD-10-PCS; 2019-03-19)
PROC: 0DBK8ZX Excision of Ascending Colon, Via Natural or Artificial Opening Endoscopic, Diagnostic (ICD-10-PCS; 2019-03-19)
PROC: 0DBN8ZX Excision of Sigmoid Colon, Via Natural or Artificial Opening Endoscopic, Diagnostic (ICD-10-PCS; 2019-03-19)
DX: M00.9 Pyogenic arthritis, unspecified (principal); K92.1 Melena; D50.9 Iron deficiency anemia, unspecified; I48.91 Unspecified atrial fibrillation; F32.9 Major depressive disorder, single episode, unspecified; E03.9 Hypothyroidism, unspecified; F41.1 Generalized anxiety disorder; K21.9 Gastro-esophageal reflux disease without esophagitis; G47.00 Insomnia, unspecified; N30.20 Other chronic cystitis without hematuria; K52.9 Noninfective gastroenteritis and colitis, unspecified; A60.00 Herpesviral infection of urogenital system, unspecified; Z79.01 Long term (current) use of anticoagulants; Z79.899 Other long term (current) drug therapy; Z86.711 Personal history of pulmonary embolism; Z86.718 Personal history of other venous thrombosis and embolism; Z87.440 Personal history of urinary (tract) infections; Z88.2 Allergy status to sulfonamides; Z88.1 Allergy status to other antibiotic agents; Z90.3 Acquired absence of stomach [part of]; Z86.010 Personal history of colon polyps; Z93.6 Other artificial openings of urinary tract status
CPT/HCPCS: 20605; 36415; 36416; 36430; 80048; 80053; 80202; 81001; 82274; 82550; 82607; 82728; 82746; 83540; 83550; 83605; 83630; 84443; 84484; 85025; 85060; 85652; 86140; 86850; 86900; 86901; 87040; 87045; 87046; 87070; 87086; 87205; 87324; 87449; 87899; 88305; 88312; 88313; 89051; 89060; 93005; 96361; 96365; J2001; J2704; J3370; J3490; J7050; P9016; Q0162; Q0169

== ENCOUNTER 2019-04-05 06:01 | Inpatient (IN) | payer MEDICARE ==
[2019-04-05 06:25] LABS: #Eosinphils 0.2 thou/uL (0.0-0.7); #Lymphocytes 1.1 thou/uL (1.20-3.40); #Monocytes 0.7 thou/uL (0.11-0.59); #Neutrophils 6.7 thou/uL (1.40-6.50); %Basophils 0.5 % (0.0-1.0); %Eosinophils 2.6 % (0.0-10.0); %Lymphocytes 12.1 % (21.0-51.0); %Monocytes 8.4 % (0.0-10.0); %Neutrophils 76.3 % (42.0-75.0); Hemoglobin 9.9 g/dL (12.0-16.0); Mean Corpuscular HGB CONC 30.8 g/dL (32.0-36.0); Mean Corpuscular Hemoglobin 28.2 pg (27.0-31.0); Mean Corpuscular Volume 91.6 fL (78.0-98.0); Platelet Count 451 thou/uL (130-400); Red Blood Cell (RBC) Count 3.51 mill/uL (4.20-5.40); White Blood Cell (WBC) Count 8.8 thou/uL (4.8-10.8)
[2019-04-05] MEDS ORDERED: Morphine 4 MG/ML VIAL ONE (06:40)
[2019-04-05 06:47] LABS: ALT (SGPT) Less than 7 U/L (8-55); AST (SGOT) 13 U/L (5-34); Albumin 3.5 g/dL (3.4-4.8); Alkaline Phosphatase 97 U/L (40-150); Anion Gap 12 mmol/L (10-20); BUN (Urea Nitrogen) 33 mg/dL (9.8-20.1); Bilirubin, Total 0.4 mg/dL (0.2-1.2); Calc. Creatinine Clearance 0 mL/min (70-130); Calcium 9.3 mg/dL (7.8-10.44); Carbon Dioxide 24 mmol/L (23-31); Chloride 106 mmol/L (98-107); Estimated GFR-MDRD 26; Globulin 4.3 g/dL (2.4-3.5); Glucose 96 mg/dL (83-110); Lipase 203 U/L (8-78); Protein, Total 7.8 g/dL (6.0-8.3); Sodium 137 mmol/L (136-145)
--- NOTE | 2019-04-05 07:37 | CT ---
Exam: Abdomen and pelvic CT scan without IV contrast: HISTORY: Abdominal pain COMPARISON: 02/10/2015 FINDINGS: Bilateral minimal pleural thickening and pleural-based parenchymal changes evidence for dependent pos itioning and/or chronic changes and/or mild subsegmental atelectasis. Postsurgical changes within the abdomen including gastric bypass surgery as well as some small bowel anastomotic changes within t he pelvis. Visualized liver, pancreas, spleen, adrenal glands are unremarkable. There is thickening of the distal esophagus which may well be related to prior surgery. Moderate bilateral renal hydronep hrosis with bilateral renal calculi. I cannot specifically identify an obstructing calculus. The pelvis is considerably obscured because of extensive artifact from the left hip prosthesis. There is a moderate amount of fecal material throughout the colon. There are abnormally dilated loops of small bowel with air-fluid levels evidence for significant ileus or minimal-midgrade small bowel obst ruction. These dilated loops are less distended than on the prior study. No evidence for abscess or significant abnormal fluid collection within the abdomen or pelvis. IMPRESSION: Gas and fecal material throughout the colon with some abnormally dilated small bowel with air-fluid l evels evidence for minimal to midgrade small bowel obstruction and/or ileus. The amount of bowel dilatation is less marked than on the prior study. Bilateral renal hydronephrosis and bilateral nonob structing renal calculi. No overt obstructing calculus is seen although there are numerous phleboliths and there is artifact in the pelvis from the left hip prosthesis so that possibility shin ot be totally excluded. There is actually improved appearance to the dilated left upper collecting system when compared to prior study. Somewhat thick-walled distal esophagus possibly related to surge ry. No abscess or significant abnormal fluid collection. Depending upon concern, consider short-term follow-up study to include oral contrast.
[2019-04-05 07:49] LABS: Bilirubin Negative (Negative); Blood, Urine Negative (Negative); Clarity CLOUDY (Clear); Glucose, Urine (Dipstick) Negative (Negative); Leukocyte Large (Negative); Nitrite Negative (Negative); Protein, Urine (Dipstick) 30 mg/dL (Neg-Trace); Specific Gravity, Urine 1.012 (1.002-1.036); Urobilinogen 0.2 mg/dL (0.2-1.0); pH, Urine 7.5 (5.0-9.0)
[2019-04-05 07:52] LABS: Bacteria/HPF 4+ HPF (None Seen); Hyaline Casts/LPF 4-6 HYALINE CAST LPF (0-3 Hyaline); Pathc Cast-AUWi Flag 0.68 (0-2.49); RBC/HPF 0-3 HPF (0-3); Squamous Epithelial None Seen HPF (0-3)
[2019-04-05] MEDS ORDERED: cefTRIAXone\\ROCEPHIN 1 GM VIAL ONE (09:36)
[2019-04-05 13:09] VITALS: BMI 19.8
[2019-04-05] MEDS ORDERED: Ondansetron ODT 4 MG TAB SL PRN (13:12)
[2019-04-05] MEDS ORDERED: Sodium Chloride 0.9% 1,000 ML IV SCH (13:12)
[2019-04-05] MEDS ORDERED: Ondansetron PF 4 MG/2 ML Vial IVP PRN (13:12)
[2019-04-05] MEDS ORDERED: Acetaminophen 325 MG TAB PO PRN (13:12)
[2019-04-05] MEDS ORDERED: Ondansetron ODT 8 MG TAB PO PRN (21:04)
[2019-04-05] MEDS ORDERED: Morphine 2 MG/ML SYRINGE SLOW IVP PRN (21:04)
[2019-04-05] MEDS: Dextrose 5 % And 0.9 % NaCl 1,000 ML IV SCH (21:15)
--- NOTE | 2019-04-05 21:39 | CON ---
DATE OF CONSULTATION: 04/05/2019 CHIEF COMPLAINT: Abdominal distention. HISTORY OF PRESENT ILLNESS: This is a 78-year-old female, who I previously had seen, who presents with a history of abdominal distention and upper abdominal pain. Seen at [facility] and I was consulted for potential small bowel obstruction. The patient notes her pain is improved. She denies any nausea. She does note abdominal bloating. She has an extensive medical history, most recently had an infected elbow. She has also had a chronic UTI. Her pain is now described as 2/10 and dull. She has no nausea at the current time and has not vomited since being here. PAST MEDICAL HISTORY: Includes chronic diarrhea, depression, atrial fibrillation, esophageal stricture, recurrent DVT, and chronic UTIs. PAST SURGICAL HISTORY: Hysterectomy, oophorectomy, appendectomy, tonsillectomy, urostomy, and cholecystectomy. ALLERGIES: SEE LONG LIST. MEDICINES: See long list. REVIEW OF SYSTEMS: Otherwise negative. PHYSICAL EXAMINATION: VITAL SIGNS: Her pulse is 72, blood pressure is 150/78, respirations 18, and temperature 98.3. HEENT: Sclerae anicteric. Oropharynx clear. NECK: No lymphadenopathy. CHEST: Clear. HEART: Regular rate. ABDOMEN: Soft, minimally distended. Nontender. Her urostomy bag is intact. There are no abdominal hernias. Well-healed abdominal incisions. LABORATORY DATA: White blood cell count is 8, hemoglobin is 9.9, platelet count is normal. Creatinine is 1.9. Liver function tests normal. CT scan shows dilation of small bowel, but also most of her colon is air-filled and dilated. UA reveals UTI. ASSESSMENT: Ileus. Her CT scan clearly shows ileus, not small bowel obstruction with significant air distention of both small and large bowel. This is not usually consistent with small bowel obstruction. Her ileus is secondary to chronic disease versus chronic urinary tract infection. PLAN: Observation at this point. She is not likely to require surgery. We will follow with you. Job ID: [id number]
--- NOTE | 2019-04-06 03:06 | HP ---
CHIEF COMPLAINT: Small bowel obstruction. HISTORY OF PRESENT ILLNESS: The patient is a 78-year-old female, who was suddenly woken at about 4:00 a.m. with severe left lower quadrant abdominal pain, it is very intense. She was brought to the emergency room, there a CAT scan revealed some dilated loops of small bowel. The pain was slowly remitted, and by 7:00 to 8:00 a.m., the pain had been gone completely. However, due to the x-ray findings, Dr. Fan was contacted about putting her in into the hospital for observation. Dr. Easley had already been consulted and recommended further observation. The patient has longstanding urinary tract issues such that she has a urostomy and has chronic pyuria. These are no longer treated unless they are symptomatic and the patient did not have any clear symptoms until she was told about the pyuria. Still, she has no blood in urine or stool, or painful urination when she does occasionally urinate. The patient did not have any nausea, vomiting, or diarrhea. PAST MEDICAL HISTORY: Significant for chronic diarrhea, depression, atrial fibrillation, hypothyroidism, severe GERD, esophageal strictures, recurrent DVT with PE, gastric obstruction secondary to gastric banding and takedown, history of ileostomy, severe anxiety disorder, insomnia, recurrent herpes simplex genitally , chronic recurrent UTIs with longstanding pyuria, and multiple antibiotic allergies. PAST SURGICAL HISTORY: Bladder suspension, abdominal hysterectomy, elective oophorectomy, appendectomy, tonsillectomy, urostomy, and cholecystectomy. EGD performed by Dr. Pablo in February 2019. ALLERGIES: ALLERGIES ARE TO SULFA, LEVAQUIN, DARVON, AND CEPHALOSPORINS. MEDICATIONS: On admission include; 1. Trintellix 20 mg daily. 2. Xanax 1 mg t.i.d. 3. Xarelto 15 mg daily. 4. Carvedilol 3.125 mg b.i.d. 5. Spironolactone 25 mg daily. 6. Lasix 20 mg q.a.m. 7. Potassium chloride 20 mEq daily. 8. Famvir 500 mg daily. 9. Multaq 400 mg b.i.d. 10. Levothyroxine 88 mcg daily. FAMILY HISTORY: Noncontributory. SOCIAL HISTORY: She is . She does not smoke or drink alcoholic beverages. Never has used illicit drugs. REVIEW OF SYSTEMS: CONSTITUTIONAL: At the time of admission; she is chronically tired and weak, but denies fevers or chills. HEENT: No sores, pain, or drainage from ears, nose, or throat. CHEST: Denies cough or shortness of breath. CARDIOVASCULAR: Denies palpitations or chest pain. ABDOMEN: Denies nausea, vomiting, or diarrhea, but is present in the hospital for intense left lower quadrant pain. : Denies any dysuria or frequency. She has not seen blood in her urine or stool. EXTREMITIES: She has lower extremity chronic 2+ edema, otherwise no other acute changes. SKIN: No new rashes or lesions. NEUROLOGIC: She has chronic anxiety and insomnia, but otherwise no change. PHYSICAL EXAMINATION: VITAL SIGNS: At the time of admission; blood pressure is 150/78, pulse 72, respirations 18, temperature 98.3, O2 saturation is 99% on room air. She weighs 101 pounds. GENERAL: She is an elderly female, alert, oriented, and cooperative, in no acute distress. HEENT: Normocephalic and atraumatic. Pupils are equal, round, and reactive to light. Reactivity is diminished with pupils are 1 to 2 mm. There are arcus senilis bilaterally. TMs, nares, and pharynx are clear. NECK: Supple. Trachea is midline. CHEST: Clear to auscultation. BREASTS: Deferred. HEART: Regular rate and rhythm without murmur. ABDOMEN: Somewhat full, distended, tympanic, nontender examination. Positive bowel sounds. : Deferred. EXTREMITIES: Without clubbing or cyanosis. There is 2+ lower extremity edema, which is chronic. MUSCULOSKELETAL: Range of motion in the upper and lower extremities are normal. SKIN: No acute rashes or lesions. NEUROLOGIC: Cranial nerves are intact. Mental status is at baseline. Sensory exam is grossly intact. Untested gait and cerebellar function at this time. LABORATORY DATA: Lab work thus far shows WBC is 8.8, hemoglobin 9.9, hematocrit 32.2 with platelets at 451. Sodium 137, potassium 5.0, chloride 106, CO2 is 24 , BUN 33, and creatinine 1.9 with a GFR of 26. Glucose 96. Liver functions are unremarkable. Troponin is 0.13. Lipase at 203. Urinalysis shows too numerous to count wbc's, large leukocyte esterase. DIAGNOSTIC DATA: CT of the abdomen showed gas and fecal material throughout the colon with some abnormally dilated small bowel with air-fluid levels evident from minimal to mid-grade small bowel obstruction and/or ileus of the bowel. Short- term followup indicated if there is some concern. ASSESSMENT: 1. Possible small bowel obstruction versus intermittent ileus. 2. Chronic pyuria, possibly inducing the ileus. 3. Generalized anxiety disorder. 4. Chronic diarrhea. 5. Wright esophagus. PLAN: With abdominal pain gone, the patient never had nausea, vomiting, or diarrhea. We will begin a clear liquid diet and serially re-evaluate the patient. Her lipase is slightly elevated. We will check amylase and see how her pain if her pain recurs and if do not, should be able to go home soon. Job ID: [id number] [facility]
[2019-04-06] MEDS: Dextrose 5 % And 0.9 % NaCl 1,000 ML IV SCH ×3 (04:35→20:23)
[2019-04-06] MEDS: Levothyroxine Sodium 88 MCG TAB PO SCH (05:37)
[2019-04-06 06:52] LABS: #Eosinphils 0.3 thou/uL (0.0-0.7); #Lymphocytes 1.5 thou/uL (1.20-3.40); #Monocytes 0.8 thou/uL (0.11-0.59); #Neutrophils 4.8 thou/uL (1.40-6.50); %Basophils 0.1 % (0.0-1.0); %Lymphocytes 20.5 % (21.0-51.0); %Monocytes 11.1 % (0.0-10.0); %Neutrophils 64.3 % (42.0-75.0); Hemoglobin 8.4 g/dL (12.0-16.0); Mean Corpuscular HGB CONC 33.2 g/dL (32.0-36.0); Mean Corpuscular Hemoglobin 30.4 pg (27.0-31.0); Mean Corpuscular Volume 91.6 fL (78.0-98.0); Mean Platelet Volume 7.2 fL (7.4-10.4); Platelet Count 346 thou/uL (130-400); RBC Distribution Width 19.1 % (11.5-14.5); Red Blood Cell (RBC) Count 2.76 mill/uL (4.20-5.40); White Blood Cell (WBC) Count 7.4 thou/uL (4.8-10.8)
[2019-04-06 07:14] LABS: Anion Gap 10 mmol/L (10-20); BUN (Urea Nitrogen) 19 mg/dL (9.8-20.1); Calc. Creatinine Clearance 31 mL/min (70-130); Calcium 8.5 mg/dL (7.8-10.44); Carbon Dioxide 21 mmol/L (23-31); Chloride 114 mmol/L (98-107); Estimated GFR-MDRD 48; Glucose 82 mg/dL (83-110); Potassium 4.4 mmol/L (3.5-5.1); Sodium 141 mmol/L (136-145)
--- NOTE | 2019-04-06 08:23 | RAD ---
EXAM: Abdominal survey with two-view abdomen: Supine and upright views. INDICATIONS: Abdominal pain COMPARISON: None. FINDINGS: Stool and gas throughout colon. Prominent stool at the sigmoid rectum. No free air. No soft tissue mass. Aorta is calcified. Small bowel gas pattern unremarkable. IMPRESSION: Stool and gas throughout a mildly distended colon.
[2019-04-06] MEDS: Carvedilol 3.125 MG TAB PO SCH ×2 (08:54→20:24)
[2019-04-06] MEDS: Furosemide 20 MG TAB PO SCH (08:54)
[2019-04-06] MEDS: Famciclovir 500 MG TAB PO SCH (08:54)
[2019-04-06] MEDS: Citalopram 20 MG TAB PO SCH (08:54)
[2019-04-06] MEDS: ALPRAZolam 1 MG TAB PO SCH ×2 (08:54→20:24)
[2019-04-06] MEDS: Dronedarone HCl 400 MG TAB PO SCH ×2 (08:54→20:24)
[2019-04-06] MEDS: Spironolactone 25 MG TAB PO SCH (08:54)
--- NOTE | 2019-04-06 15:10 | PRG ---
DATE OF SERVICE: 04/06/2019 SUBJECTIVE: Ms. Mak is doing well. She tolerated the liquids without difficulty. She has been having bowel movements. No nausea. OBJECTIVE: ABDOMEN: Soft, nontender, nondistended. ASSESSMENT: Resolving ileus. PLAN: Advance diet. She can be discharged home at any time by me. She is not needing any kind of surgical procedures. We will follow on as needed basis. Job ID: [id number]
[2019-04-07] MEDS: Levothyroxine Sodium 88 MCG TAB PO SCH (05:14)
[2019-04-07] MEDS: Dextrose 5 % And 0.9 % NaCl 1,000 ML IV SCH (05:16)
[2019-04-07] MEDS: Citalopram 20 MG TAB PO SCH (08:04)
[2019-04-07] MEDS: Dronedarone HCl 400 MG TAB PO SCH (08:04)
[2019-04-07] MEDS: Furosemide 20 MG TAB PO SCH (08:04)
[2019-04-07] MEDS: ALPRAZolam 1 MG TAB PO SCH (08:05)
[2019-04-07] MEDS: Carvedilol 3.125 MG TAB PO SCH (08:05)
[2019-04-07] MEDS: Famciclovir 500 MG TAB PO SCH (08:05)
[2019-04-07] MEDS: Spironolactone 25 MG TAB PO SCH (08:05)
--- NOTE | 2019-04-07 11:10 | EKG ---
Test Reason : Blood Pressure : / mmHG Vent. Rate : 081 BPM Atrial Rate : 081 BPM P-R Int : 200 ms QRS Dur : 090 ms QT Int : 396 ms P-R-T Axes : -02 027 055 degrees QTc Int : 460 ms Normal sinus rhythm Ant septal ST upsloping and slight elevation, cannot R/O acute early changes Confirmed by DR. Chris SKELTON (3) on 04/07/2019 11:09:57 AM Referred By: Confirmed By:DR. Chris SKELTON
[2019-04-07 11:58] VITALS: BP 93/63; TEMP 97.5
== END 2019-04-07 12:05 | disposition home or self-care (01) | DRG 389 ==
LOC: ERS 06:01 → ERHOLD 09:58 → T4-B 13:23
PROVIDERS: ADMIT Specialist; ATTEND Specialist
DX: K56.7 Ileus, unspecified (principal); N39.0 Urinary tract infection, site not specified; I48.91 Unspecified atrial fibrillation; E03.9 Hypothyroidism, unspecified; F32.9 Major depressive disorder, single episode, unspecified; K21.9 Gastro-esophageal reflux disease without esophagitis; K22.70 Barrett's esophagus without dysplasia; K52.9 Noninfective gastroenteritis and colitis, unspecified; F41.9 Anxiety disorder, unspecified; G47.00 Insomnia, unspecified; Z88.1 Allergy status to other antibiotic agents; Z88.2 Allergy status to sulfonamides; Z90.49 Acquired absence of other specified parts of digestive tract; Z86.711 Personal history of pulmonary embolism; Z90.710 Acquired absence of both cervix and uterus; Z79.01 Long term (current) use of anticoagulants; Z79.899 Other long term (current) drug therapy; Z88.0 Allergy status to penicillin
CPT/HCPCS: 36415; 74019; 74176; 80048; 80053; 81003; 81015; 82150; 83690; 84484; 85025; 87077; 87086; 87186; 93005; 96361; 96365; 96372; J0500; J0696; J2270

== ENCOUNTER 2019-07-03 15:17 | Emergency (ER) | payer MEDICARE ==
--- NOTE | 2019-07-03 15:47 | RAD ---
EXAM: 4 views of the right knee HISTORY: Fall with right knee pain COMPARISON: None FINDINGS: No knee effusion is seen. There is a bipartite patella. There is no evidence of acute fract ure or dislocation. No significant degenerative changes are seen. No soft tissue swelling is present. IMPRESSION: No evidence of acute osseous abnormality.
--- NOTE | 2019-07-03 15:48 | RAD ---
EXAM: 4 views of the left knee HISTORY: Knee pain COMPARISON: None FINDINGS: A small knee effusion is seen. There is no evidence of acute fracture or dislocation. Moder ate tricompartmental joint space narrowing and osteophyte formation is seen.. No soft tissue swelling is present. IMPRESSION: Moderate left knee osteoarthritis without acute osseous abnormality.
--- NOTE | 2019-07-03 15:55 | CT ---
EXAM: CT brain without contrast HISTORY: Tripped and fell with head trauma COMPARISON: 04/21/2018 TECHNIQUE: Multiple contiguous axial images were obtained and a CT of the brain without contrast. FINDINGS: There are scattered hypodensities in the subcortical and periventricular white matter consi stent with small vessel ischemic disease. There is no evidence of hydrocephalus, intracranial hemorrhage, or extra-axial fluid collection. The calvarium and overlying soft tissues are unremarkable. Fluid is seen in the left maxillary sinus and there may be a fracture of the anterior wall of the left maxillary sinus. IMPRESSION: 1. No evidence of acute intracranial abnormality 2. Possible left maxillary sinus fracture. A CT of the face is recommended for further evaluation.
--- NOTE | 2019-07-03 15:59 | CT ---
EXAM: CT face without contrast HISTORY: Facial trauma COMPARISON: None TECHNIQUE: Multiple contiguous axial images were obtained and a CT of the face without contrast. Sagi ttal and coronal reformats were performed. FINDINGS: There is a mildly displaced left zygomaticomaxillary complex fracture. There is minimal dis placement of the orbital floor component of the fracture. Mild left facial soft tissue swelling is seen. The globes and retrobulbar soft tissues are unremarkable. There is no evidence of entrapment of the left inferior rectus muscle. Fluid is seen in the left maxillary sinus. The other visualized paranasal sinuses are well aerated wi thout evidence of opacification. The mastoid air cells are well aerated. Visualized intracranial structures are unremarkable. IMPRESSION: Minimally displaced left zygomaticomaxillary complex fracture
--- NOTE | 2019-07-03 16:17 | CT ---
CT CERVICAL SPINE NONCONTRAST: 07/03/19 HISTORY: 79-year-old female status post acute cervical trauma from fall. FINDINGS: There are no jumped or perched facets. There is no evidence of acute fracture. The vertebral body h eights are maintained. There is no prevertebral soft tissue swelling. The visualized upper portion o f the esophagus is distended with gas. IMPRESSION: 1. No evidence of acute fracture or acute traumatic subluxation. 2. Gas distended esophagus, incompletely imaged. jn [] POS: TPC
--- NOTE | 2019-07-03 16:59 | RAD ---
EXAM: XR Hip Lt 2-3 View PROVIDED CLINICAL HISTORY: Pain FINDINGS: Comparison 04/28/2009. There is no evidence for fracture or other acute osseous abnormality. Alignment appears anatomic. Postoperative changes of left total hip arthroplasty are demonstrated without evidence for hardware complication. IMPRESSION: No evidence for an acute osseous abnormality. If there is persistent clinical concern, conservative m anagement and follow-up imaging advised.
[2019-07-03] MEDS ORDERED: HYDROcodone/Acetaminophen 10/325 mg Tablet ONE (18:04)
[2019-07-03] MEDS ORDERED: Adacel (T-DAP) 0.5 ML SYRINGE ONE (18:04)
== END 2019-07-03 19:04 | disposition home or self-care (01) ==
LOC: ERS 15:17
DX: S02.40FA Zygomatic fracture, left side, initial encounter for closed fracture (principal); S02.40DA Maxillary fracture, left side, initial encounter for closed fracture; S51.012A Laceration without foreign body of left elbow, initial encounter; M25.562 Pain in left knee; M25.462 Effusion, left knee; I48.91 Unspecified atrial fibrillation; E03.9 Hypothyroidism, unspecified; D64.9 Anemia, unspecified; Z86.711 Personal history of pulmonary embolism; F32.9 Major depressive disorder, single episode, unspecified; Z79.899 Other long term (current) drug therapy; Z79.01 Long term (current) use of anticoagulants; W18.30XA Fall on same level, unspecified, initial encounter
CPT/HCPCS: 70450; 70486; 72125; 90471; 90715

== ENCOUNTER 2019-07-19 16:48 | Outpatient (CLI) | payer MEDICARE ==
--- NOTE | 2019-07-19 17:04 | RAD ---
Left ankle 3 views HISTORY: Left ankle pain and swelling. FINDINGS: Ankle mortise and talar dome are intact. Mild osteophytosis. Soft tissue swelling over the lateral malleolus. No displaced fractures are apparent. Plantar enthesophyte at the inferior aspect of the calcaneus. Osseous structures are demineralized. IMPRESSION: Mild changes. No acute osseous abnormalities are demonstrated. Osteoporosis. Plantar heel spur
--- NOTE | 2019-07-19 17:06 | RAD ---
Left foot 3 views HISTORY: Left foot pain. FINDINGS: Lisfranc joint alignment is anatomic. Plantar arch is maintained. Mild to moderate osteophy tosis throughout the foot. Hallux valgus and bunion deformity. Osseous structures are demineralized. Plantar heel spur. No acute fracture, dislocation, or aggressive osseous erosions. IMPRESSION: No acute osseous abnormalities are demonstrated. Mild degenerative changes. Hallux valgus and bunion deformity. Osteoporosis.
== END 2019-07-19 16:49 | disposition home or self-care (01) ==
LOC: BICRAD 16:48
PROVIDERS: ATTEND Specialist
DX: M79.672 Pain in left foot (principal); M20.12 Hallux valgus (acquired), left foot; M21.612 Bunion of left foot; M19.072 Primary osteoarthritis, left ankle and foot; M81.0 Age-related osteoporosis without current pathological fracture; M77.32 Calcaneal spur, left foot; Z91.81 History of falling
CPT/HCPCS: 80048; 85027; 85610; 85730; 87077; 87086; 87186; 93005; 93010

== ENCOUNTER 2019-08-02 08:15 | Day surgery (SDC) | payer MEDICARE ==
[2019-07-19 15:19] VITALS: BMI 19.9
[2019-08-02] MEDS ORDERED: MEROPENEM 1 GM/50 ML 1 GM in Premix Bag 1 BAG IVPB SCH (09:15)
[2019-08-02] MEDS ORDERED: Fentanyl 100 MCG/2 ML VIAL ONE ×2 (10:12→11:47)
[2019-08-02] MEDS ORDERED: Ondansetron PF 4 MG/2 ML Vial ONE (12:31)
--- NOTE | 2019-08-02 18:51 | OP ---
DATE OF PROCEDURE: 08/02/2019 SERVICE: Urology. PREOPERATIVE DIAGNOSES: Hematuria, overactive bladder, and calcinosis cutis of the labia. POSTOPERATIVE DIAGNOSES: Hematuria, overactive bladder, and calcinosis cutis of the labia. PROCEDURES PERFORMED: Excision of benign labial lesion with cystoscopy, simple irrigation of the bladder, bladder biopsy, and fulguration. INDICATION FOR PROCEDURE: Ms. Mak is a 79-year-old white female, whom I have known for a long time. She has a urinary diversion with ileal conduit and a [place] bladder, which is in place. She gets purulent and bloody discharge from the bladder with spasms, which only partially controlled on oxybutynin. She previously had undergone a hydrodistention and fulguration of some erythematous areas to prevent further bleeding and improve her overactive bladder symptoms. We had discussed repeating this since her symptoms have returned including taking a biopsy from the bladder as well as she wanted another area on the labia to be removed as another calcified area has appeared where it had appeared previously. We discussed risks and benefits, she agreed to proceed forward. DESCRIPTION OF PROCEDURE: After identification of armband and verification of consent, the patient was brought back to the operating room. The patient underwent general anesthesia with an LMA. She was placed in dorsal lithotomy position and prepped and draped in usual sterile fashion. After appropriate time-out, a lubricated 22-Georgian rigid cystoscope was introduced per urethra into the bladder. It was extremely purulent and cloudy within the bladder, and the bladder was copiously irrigated with sterile water until it was clear. There were no tumors or any suspicious malignant type lesions within the bladder. The previously identified area from prior surgery near the bladder neck just at the entrance into the urethra appeared exactly the same as it did before, indicating this is a benign lesion requiring no intervention. There was no bleeding coming from this area. The posterior bladder wall and dome of the bladder had some erythematous areas, which bled with hydrodistention. These areas were fulgurated completely with cold cup biopsy being taken of one of the lesions on the posterior bladder wall. After complete fulguration, there appeared to be diffuse petechiae throughout the bladder from the hydrodistention, but otherwise all bleeding seemed to have stopped. The bladder was emptied, and the cystoscope was removed. Attention was then turned to the labial lesion. Using a 15 blade, a very small incision was made over the labial lesion on the left labia. It was probably only about 2 to 3 mm longitudinal incision. The lesion, which appeared to be just a calcified epidermal inclusion cyst, was simply plucked out and there was such a minimal amount of bleeding and the lesion was so small, probably less than 5 mm, around 2 to 3 mm that no sutures or any other intervention was required. Pressure was held on the labia for approximately 2 minutes until there was no bleeding. The area appeared very good. The cystoscope sheath with obturator was inserted back into the bladder and irrigated one additional time, which returned clear indicating there was no active bleeding. The cystoscope was removed. The patient was awakened, taken out of positioning, and taken to recovery in stable condition. COMPLICATIONS: None. ESTIMATED BLOOD LOSS: Minimal. RETAINED TUBES AND DRAINS: None. SPECIMENS: Bladder biopsy. DISPOSITION: The patient will be discharged home and follow up with me in approximately 1 to 2 weeks for postop check. Job ID: [id number]
--- NOTE | 2019-08-07 05:48 | PQF ---
[facility] POST DISCHARGE CLINICAL DOCUMENTATION IMPROVEMENT CLARIFICATION FORM l Todays Date: 08/07/19 l Patients Name ANITA HERMOSILLO l l Admit Date 08/02/19 l Disch Date 08/02/19 Industrial Engineering Manager Name Diego Laurent Email: [email or web address] Cell: [phone] To be completed by Industrial Engineering Manager: Present Clinical Indicators - Signs / Symptoms Results and Location in Medical Record [ ] Documentation of: [ ] [ ] Documentation of: [ ] [ ] Documentation of: [ ] [ ] Documentation of: [ ] [ ] Risks [ ] [ ] [ ] Treatment [ ] Acute Cystitis with ulceration and hematuria Query for size of laser fulgurated bladder lesions. [ ] [ ] To be completed by Physician: VERONICA HUNT The documentation in this patients record requires clarification to ensure coding compliance and accuracy. Check the appropriate box and include in your discharge summary. [X ] __Area of size fulgurated was 2-5 cm [ ] [ ] [ ] Please check this box if this does not apply to this patient [ ] Unable to determine [ ] Other diagnosis: Review the following information and exercise your independent professional judgment in responding to the clarification. Based upon the clinical findings, risk factors, and treatment, please clarify if you are treating one of the above probable or suspected diagnoses. Physician Signature: Date Time SANTOD
== END 2019-08-02 13:45 | disposition home or self-care (01) ==
LOC: SDC 08:15
PROVIDERS: ATTEND Urology
PROC: 0UBMXZZ Excision of Vulva, External Approach (ICD-10-PCS; principal; 2019-08-02)
PROC: 0T5B8ZZ Destruction of Bladder, Via Natural or Artificial Opening Endoscopic (ICD-10-PCS; 2019-08-02)
DX: N30.01 Acute cystitis with hematuria (principal); N32.89 Other specified disorders of bladder; N32.81 Overactive bladder; L94.2 Calcinosis cutis; F32.9 Major depressive disorder, single episode, unspecified; M19.90 Unspecified osteoarthritis, unspecified site; I10 Essential (primary) hypertension; E78.5 Hyperlipidemia, unspecified; I48.91 Unspecified atrial fibrillation; E03.9 Hypothyroidism, unspecified; G20 Parkinson's disease; J45.909 Unspecified asthma, uncomplicated; G43.909 Migraine, unspecified, not intractable, without status migrainosus; G47.00 Insomnia, unspecified; E78.00 Pure hypercholesterolemia, unspecified; Z86.718 Personal history of other venous thrombosis and embolism; Z79.01 Long term (current) use of anticoagulants; Z79.899 Other long term (current) drug therapy; Z88.1 Allergy status to other antibiotic agents; Z88.2 Allergy status to sulfonamides; Z88.8 Allergy status to other drugs, medicaments and biological substances; Z90.3 Acquired absence of stomach [part of]; Z93.6 Other artificial openings of urinary tract status
CPT/HCPCS: 88305; J2185; J2405; J3010

== ENCOUNTER 2019-09-05 12:21 | Emergency (ER) | payer MEDICARE ==
--- NOTE | 2019-09-05 13:17 | CT ---
CT BRAIN WITHOUT CONTRAST: HISTORY:Fall, dizziness COMPARISON:07/03/2019 FINDINGS: There are foci of decreased attenuation in the periventricular white matter, consistent with chronic small vessel ischemic disease. No evidence of acute infarct, hemorrhage, midline shift or abnormal extra-axial fluid collections is seen. The ventricular size is appropriate and the basilar cisterns are patent. The bony calvarium is intact. There is an old fracture of the anterior wall of the left maxillary sinus. The visualized paranasal sinuses and mastoid air cells are well aerated. IMPRESSION: No CT evidence of acute intracranial process.
--- NOTE | 2019-09-05 13:52 | RAD ---
RIGHT KNEE 4 VIEWS: HISTORY: Trauma, right knee pain FINDINGS: Comparison is made with exam of 07/03/2019. No acute fracture or dislocation is seen. Sclerotic focus in the proximal tibia is stable. No joint e ffusion is seen. 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 There is chondrocalcinosis.
--- NOTE | 2019-09-05 13:53 | RAD ---
XR Shoulder Rt 3 View STANDARD HISTORY: Trauma, right shoulder pain FINDINGS: No fracture or dislocation is identified.
--- NOTE | 2019-09-05 14:13 | RAD ---
RIGHT HIP 2 VIEWS: Date: 09/05/19 HISTORY: Pain. COMPARISON: None. FINDINGS: Obturator ring intact. No acute displaced fracture or malalignment. Mild enthesopathic change greater trochanter. Right ilium intact. There is suture material at the lower pelvis. IMPRESSION: No acute fracture. POS: [facility]
--- NOTE | 2019-09-05 14:14 | RAD ---
PELVIS 1 VIEW: Date: 09/05/19 HISTORY: Injury. Pain. COMPARISON: None. FINDINGS: There is a subtle linear cortical step-off left sacrum S2 lateral to the neural foramen. The right hi p is without fracture or malalignment. Obturator rings intact. IMPRESSION: Possible insufficiency fracture left sacrum S2, Zone 1. POS: C
[2019-09-05] MEDS ORDERED: HYDROcodone/Acetaminophen 5/325 mg Tablet ONE (14:43)
--- NOTE | 2019-09-05 15:09 | CT ---
CT pelvis noncontrast: DATE: 09/05/2019 HISTORY: 79-year-old female status post acute pelvic trauma due to fall, especially right hip pain FINDINGS: Left metallic acetabular cup articulates with left femoral head and neck prosthesis with stem that re aches proximal femoral diaphysis. No dislocation. No acute fracture is identified. Right hip is essentially normal. Bilateral facet DJD at L4-5 and L5-S1 without severe neural foraminal stenosis or severe disc space narrowing or severe central spinal canal stenosis at those levels. No intrapelvic free fluid. What appears to be a colostomy bag anterior to the right lower quadrant is no vidhya. Diffuse osteopenia. Osteopenia/osteoporosis could obscure a nondisplaced fracture. Therefore, if patient's symptoms do not improve over the next several days, a follow-up noncontrast CT is recomm ended in 5-10 days. There is a soft tissue hematoma in the superficial subcutaneous fat posterolateral to the right intertrochanteric region, only the superior portion of which is included on the images. IMPRESSION: 1. Acute, traumatic superficial soft tissue hematoma posterior lateral to the right proximal femur. 2. No evidence of acute fracture or dislocation. 3. Osteoporosis. 4. Status post total left hip replacement arthroplasty.
[2019-09-05] MEDS ORDERED: Bacitracin 1 PK ONE (15:28)
== END 2019-09-05 15:40 | disposition home or self-care (01) ==
LOC: ERS 12:21
DX: S41.011A Laceration without foreign body of right shoulder, initial encounter (principal); S50.311A Abrasion of right elbow, initial encounter; M25.461 Effusion, right knee; I48.91 Unspecified atrial fibrillation; E03.9 Hypothyroidism, unspecified; D64.9 Anemia, unspecified; F32.9 Major depressive disorder, single episode, unspecified; Z79.01 Long term (current) use of anticoagulants; Z79.899 Other long term (current) drug therapy; W19.XXXA Unspecified fall, initial encounter
CPT/HCPCS: 70450; 72170; 72192; 93005

== ENCOUNTER 2019-09-26 15:52 | Observation (INO) | payer MEDICARE ==
--- NOTE | 2019-09-26 17:09 | RAD ---
EXAM: Single view of the chest HISTORY: Weakness with low hemoglobin COMPARISON: 02/10/2015 FINDINGS: Single view of the chest shows a normal sized cardiomediastinal silhouette. Atheroscleroti c calcifications are seen in the aorta. There is no evidence of consolidation, mass, or pleural effusion. The bones are unremarkable. IMPRESSION: No evidence of acute cardiopulmonary disease
[2019-09-26 17:14] LABS: #Eosinphils 0.1 thou/uL (0.0-0.7); #Lymphocytes 0.9 thou/uL (1.20-3.40); #Monocytes 0.5 thou/uL (0.11-0.59); #Neutrophils 3.7 thou/uL (1.40-6.50); %Basophils 0.2 % (0.0-1.0); %Eosinophils 1.8 % (0.0-10.0); %Lymphocytes 16.6 % (21.0-51.0); %Neutrophils 71.4 % (42.0-75.0); Hemoglobin 6.5 g/dL (12.0-16.0); Mean Corpuscular HGB CONC 33.5 g/dL (32.0-36.0); Mean Corpuscular Hemoglobin 27.1 pg (27.0-31.0); Mean Platelet Volume 7.8 fL (7.4-10.4); Platelet Count 323 thou/uL (130-400); RBC Distribution Width 17.5 % (11.5-14.5); Red Blood Cell (RBC) Count 2.41 mill/uL (4.20-5.40); White Blood Cell (WBC) Count 5.2 thou/uL (4.8-10.8)
[2019-09-26 17:20] LABS: INR-International Normal Ratio 1.6; PTT 35.7 SEC (22.9-36.1); Prothrombin Time 19.2 SEC (12.0-14.7)
[2019-09-26 17:40] LABS: Phosphorus 3.5 mg/dL (2.3-4.7)
[2019-09-26 17:42] LABS: ALT (SGPT) 8 U/L (8-55); AST (SGOT) 15 U/L (5-34); Albumin 3.6 g/dL (3.4-4.8); Alkaline Phosphatase 134 U/L (40-110); Anion Gap 12 mmol/L (10-20); BUN (Urea Nitrogen) 20 mg/dL (9.8-20.1); Bilirubin, Total 0.3 mg/dL (0.2-1.2); Calc. Creatinine Clearance 0 mL/min (70-130); Calcium 7.9 mg/dL (7.8-10.44); Carbon Dioxide 19 mmol/L (23-31); Chloride 112 mmol/L (98-107); Estimated GFR-MDRD 50; Globulin 3.5 g/dL (2.4-3.5); Potassium 4.6 mmol/L (3.5-5.1); Protein, Total 7.1 g/dL (6.0-8.3); Sodium 138 mmol/L (136-145)
[2019-09-26 17:45] LABS: Glucose 59 mg/dL (83-110)
[2019-09-26 19:48] VITALS: BMI 20.8
[2019-09-26] MEDS ORDERED: Acetaminophen/Codeine 30-300mg Tablet PO PRN (23:53)
[2019-09-26] MEDS ORDERED: Diphenoxylate HCl/Atropine Tablet PO PRN (23:54)
[2019-09-26] MEDS ORDERED: Promethazine 25 MG TAB PO PRN (23:56)
[2019-09-26] MEDS ORDERED: Ondansetron ODT 4 MG TAB PO PRN (23:56)
[2019-09-27] MEDS: Levothyroxine Sodium 88 MCG TAB PO SCH (04:06)
[2019-09-27 05:47] LABS: #Eosinphils 0.1 thou/uL (0.0-0.7); #Lymphocytes 1.4 thou/uL (1.20-3.40); #Monocytes 0.7 thou/uL (0.11-0.59); #Neutrophils 2.7 thou/uL (1.40-6.50); %Basophils 0.1 % (0.0-1.0); %Eosinophils 2.9 % (0.0-10.0); %Lymphocytes 29.1 % (21.0-51.0); %Monocytes 13.4 % (0.0-10.0); %Neutrophils 54.4 % (42.0-75.0); Hemoglobin 6.6 g/dL (12.0-16.0); Mean Corpuscular HGB CONC 33.3 g/dL (32.0-36.0); Mean Corpuscular Hemoglobin 27.3 pg (27.0-31.0); Mean Corpuscular Volume 82.1 fL (78.0-98.0); Mean Platelet Volume 7.9 fL (7.4-10.4); Platelet Count 241 thou/uL (130-400); RBC Distribution Width 16.5 % (11.5-14.5); White Blood Cell (WBC) Count 4.9 thou/uL (4.8-10.8)
[2019-09-27 06:12] LABS: Anion Gap 10 mmol/L (10-20); BUN (Urea Nitrogen) 17 mg/dL (9.8-20.1); Calc. Creatinine Clearance 44 mL/min (70-130); Calcium 7.6 mg/dL (7.8-10.44); Carbon Dioxide 20 mmol/L (23-31); Chloride 112 mmol/L (98-107); Estimated GFR-MDRD 67; Glucose 72 mg/dL (83-110); Sodium 138 mmol/L (136-145)
[2019-09-27] MEDS ORDERED: VORTIOXETINE HYDROBROMIDE 20 MG PO SCH (09:00)
[2019-09-27] MEDS: Spironolactone 25 MG TAB PO SCH (09:31)
[2019-09-27] MEDS: Dronedarone HCl 400 MG TAB PO SCH ×2 (09:31→17:46)
[2019-09-27] MEDS: Famciclovir 500 MG TAB PO SCH (09:32)
[2019-09-27] MEDS: ALPRAZolam 0.5 MG TAB PO SCH ×3 (09:32→20:55)
[2019-09-27] MEDS: Pantoprazole 40 MG VIAL IVP SCH ×2 (09:33→21:00)
[2019-09-27] MEDS: FLU VACC TS2019-20(65YR UP)/PF 180 MCG/0.5 ML SYRINGE IM ONE ×2 (09:33→21:02)
--- NOTE | 2019-09-27 16:36 | CON ---
DATE OF CONSULTATION: 09/27/2019 REQUESTING PHYSICIAN: Dr. Buddy Fan. REASON FOR CONSULTATION: Symptomatic anemia. HISTORY OF PRESENT ILLNESS: Lori Mak is a very pleasant 79-year-old woman previously seen by my GI colleague, Dr. Scott Gee, more recently seen by Dr. Pablo. She has a history significant for multiple abdominal surgeries including subtotal gastrectomy with antrectomy, cholecystectomy, appendectomy, and hysterectomy. She also has a urostomy in place. She is on chronic Xarelto for her atrial fibrillation and history of DVT with pulmonary embolus. She also has a history of chronic anemia with iron deficiency and B12 deficiency documented in the past. It appears her baseline hemoglobin over most of this year has been in the 8 to 9 range. She was admitted to the hospital from clinic yesterday. She has been having intermittent dizzy spells and several falls recently. This is in the absence of any overt blood loss, but her hemoglobin was checked and found to be 6.6, this prompted her admission. She is receiving her second of a planned 3 units of RBC transfusion. She is currently feeling well. She denies any nausea, vomiting, melena, hematochezia, epistaxis, gross hematuria, or hematemesis. She will occasionally have mild crampy abdominal discomfort, which is nothing new. She does have some chronic diarrhea, which is well controlled as long as she takes her Lomotil. Notably, she underwent upper and lower endoscopy earlier this year with Dr. Pablo on March 19, 2019. The EGD just showed postoperative changes of subtotal gastrectomy, irregular Z-line and was otherwise normal. The colonoscopy was normal to the terminal ileum. Esophageal biopsies demonstrated no Wright's. Duodenal biopsies were normal, ruling out celiac disease and colon biopsies were normal, ruling out microscopic colitis. REVIEW OF SYSTEMS: Full review of systems including constitutional, head, eyes, ears, nose, throat, GI, , cardiovascular, respiratory, musculoskeletal, and neurologic systems is negative except as noted in the HPI. 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 ALLERGIES: DOXYCYCLINE, IBUPROFEN, LEVOFLOXACIN, NITROFURANTOIN, AND ZOCOR. OUTPATIENT MEDICATIONS: 1. Brintellix. 2. Xarelto 15 mg daily. 3. Multaq. 4. Levothyroxine. 5. Alprazolam. 6. Famciclovir. 7. Spironolactone. 8. Furosemide. 9. Promethazine p.r.n. 10. Metoprolol. 11. Sudafed. 12. Acetaminophen/codeine every 6 hours p.r.n. 13. Ultram p.r.n. 14. Lomotil two tablets q.6 hours. FAMILY HISTORY: Noncontributory. SOCIAL HISTORY: No smoking, alcohol, or drug use. PHYSICAL EXAMINATION: VITAL SIGNS: Temperature 99.0, blood pressure 115/59, pulse 85, and 100% oxygen saturation on room air. GENERAL: A 79-year-old woman, lying in bed comfortably, in no distress. SKIN: Pale. No jaundice. No rashes were palpable. HEENT: Eyes; no scleral icterus. Extraocular movements intact. ENT; mucous membranes moist. No oral lesions. LYMPH: No submandibular or supraclavicular lymphadenopathy. THYROID: Nontender to palpation. HEART: Irregular rhythm. Systolic murmur. LUNGS: Clear to auscultation bilaterally. ABDOMEN: Bowel sounds present. Soft and nontender to deep palpation throughout. No masses or organomegaly appreciated. EXTREMITIES: No peripheral edema. VESSELS: Radial pulses 2+ bilaterally. NEUROLOGIC: Cranial nerves 2 through 12 intact bilaterally. No focal deficits. LABORATORY STUDIES: Hemoglobin 6.6, MCV 82, WBC 4.9, platelets 241. Sodium 138, potassium 4.0, BUN 17, creatinine 0.82, glucose 72. INR 1.6. TSH 0.38. LFTs all normal with total bilirubin 0.3, alkaline phosphatase 134, AST 15, ALT 8, and albumin 3.6. FOBT is positive. IMAGING STUDIES: Chest x-ray from yesterday shows no acute processes. ASSESSMENT AND PLAN: 1. Anemia, chronic. 2. Positive fecal occult blood test. 3. History of pulmonary embolus, on chronic Xarelto. 4. Prior history of subtotal gastrectomy. The patient is not having any evidence of overt gastrointestinal bleeding. The positive FOBT is really not surprising and of very limited utility in a patient on Xarelto. She has undergone upper and lower endoscopic investigation with normal duodenal biopsies as recently as February 2019. I do not think there is anything to be gained by repeating endoscopic investigation. I will order her a diet. I think it would be reasonable to recheck iron studies, B12, and folic acid levels. Continue with blood transfusion as already planned. The patient can follow up with Dr. Pablo on an outpatient basis in the next few weeks. At that time, small bowel capsule endoscopy could potentially be considered on an outpatient basis. Please call back anytime with questions or concerns. Job ID: [id number]
[2019-09-27] MEDS ORDERED: Rivaroxaban 15 MG TAB PO SCH (17:00)
[2019-09-27] MEDS: Diphenoxylate HCl/Atropine Tablet PO SCH ×2 (17:45→20:58)
[2019-09-27] MEDS ORDERED: Carvedilol 3.125 MG TAB PO SCH (21:00)
[2019-09-28] MEDS: Levothyroxine Sodium 88 MCG TAB PO SCH (04:14)
[2019-09-28 05:15] LABS: Iron 105 ug/dL (50-170); Iron Binding Capacity, Total 315 mcg/dL (265-497)
[2019-09-28 05:23] LABS: Ferritin 19.81 ng/mL (10-291)
[2019-09-28 05:28] LABS: #Eosinphils 0.2 thou/uL (0.0-0.7); #Lymphocytes 1.7 thou/uL (1.20-3.40); #Monocytes 0.8 thou/uL (0.11-0.59); #Neutrophils 3.5 thou/uL (1.40-6.50); %Basophils 0.4 % (0.0-1.0); %Eosinophils 3.5 % (0.0-10.0); %Lymphocytes 26.8 % (21.0-51.0); %Monocytes 12.5 % (0.0-10.0); %Neutrophils 56.9 % (42.0-75.0); Hemoglobin 9.4 g/dL (12.0-16.0); MDiff Complete? YES; Mean Corpuscular Hemoglobin 30.4 pg (27.0-31.0); Mean Corpuscular Volume 84.3 fL (78.0-98.0); Mean Platelet Volume 9.8 fL (7.4-10.4); Platelet Clumps SLIGHT; Platelet Count 175 thou/uL (130-400); Platelet Morphology Comment Appears Adequate; RBC Distribution Width 16.7 % (11.5-14.5); White Blood Cell (WBC) Count 6.2 thou/uL (4.8-10.8)
[2019-09-28 07:42] VITALS: BP 132/62; TEMP 98.7
[2019-09-28] MEDS: ALPRAZolam 0.5 MG TAB PO SCH (09:11)
[2019-09-28] MEDS: Dronedarone HCl 400 MG TAB PO SCH (09:11)
[2019-09-28] MEDS: Spironolactone 25 MG TAB PO SCH (09:11)
[2019-09-28] MEDS: Famciclovir 500 MG TAB PO SCH (09:12)
[2019-09-28] MEDS: Pantoprazole 40 MG VIAL IVP SCH (09:12)
[2019-09-28] MEDS: Diphenoxylate HCl/Atropine Tablet PO SCH (09:12)
--- NOTE | 2019-09-28 10:01 | HP ---
CHIEF COMPLAINT: Symptomatic anemia. HISTORY OF PRESENT ILLNESS: The patient is a 79-year-old female. When she came to see Dr. Fan in his office on the day of the ER visitation, she was noted to have a hemoglobin of 6.5 and hematocrit of 19.5. She states that she had been falling, had been dizzy, has mid-epigastric pain, was extremely weak. At which point, she was referred to the emergency room for further evaluation. In the ER at [facility], these numbers were confirmed, and it was decided to put her in for blood transfusion and further evaluation. PAST MEDICAL HISTORY: Significant for atrial fibrillation, atrial flutter, hypothyroidism, previous history is of anemia. She has had a prior pulmonary embolism, severe anxiety disorder. Last hospitalization was in March of 2019, for small bowel obstruction. She has had a history of chronic diarrhea, depression, GERD, esophageal strictures, recurrent DVT, gastric obstruction secondary to gastric banding takedown, insomnia, recurrent perianal herpes simplex, recurrent urinary tract infections with longstanding pyuria. PAST SURGICAL HISTORY: Includes bladder suspension, abdominal hysterectomy, elective oophorectomy, appendectomy, tonsillectomy, urostomy, cholecystectomy, and last EGD performed in February of 2019. ALLERGIES: SULFA, LEVAQUIN, DARVON, CEPHALOSPORINS. MEDICATIONS: On admission include, 1. Trintellix 20 mg daily. 2. Xarelto 50 mg daily. 3. Multaq 400 mg b.i.d. 4. Levothyroxine 88 mcg daily. 5. Alprazolam 1 mg p.r.n. anxiety. 6. Famciclovir 500 mg daily. 7. Spironolactone 25 mg 1/2 tablet q.a.m. 8. Furosemide 20 mg q.a.m. 9. Promethazine 25 mg at bedtime for insomnia. 10. Metoprolol 25 mg b.i.d. 11. Tylenol No. 3 p.r.n. severe pain. 12. Ultram 50 mg p.r.n. mild to moderate pain. REVIEW OF SYSTEMS: CONSTITUTIONAL: At the time of admission, negative for fever or chills. Positive for fatigue. HEENT: Negative for eyes, ears, nose, or throat having drainage or sores. CARDIOVASCULAR: Negative for chest pain or palpitations. RESPIRATORY: Positive for dyspnea, especially with exertion. Negative for cough or fever. GI: Positive for midepigastric pain whenever she eats, but negative vomiting. She has had intermittent diarrhea, for which she takes Lomotil as a preventative off sometimes. : Chronic lower abdominal pain. She has functional urostomy in place. MUSCULOSKELETAL: Generalized weakness is noted in her muscles. Mild atrophy in upper and lower extremities are noted. No specific painful joints. SKIN: Bruising from recent falls, especially perioral on the left. NEUROLOGIC: Positive for recent falls. Positive for headaches. Negative for paresthesias or hypoesthesia. PHYSICAL EXAMINATION: VITAL SIGNS: At the time of admission, her vital signs included a blood pressure 131/62, pulse 80, respirations 18, temperature 98.9, O2 saturation 100% on room air. Pain scale 0. GENERAL: This is an elderly female, alert, oriented, cooperative, in no acute distress. HEENT: Normocephalic and atraumatic. Pupils are equal, round, and reactive to light with arcus senilis bilaterally. TMs, nares, and pharynx are clear. NECK: Supple. Trachea midline. CHEST: Clear to auscultation. BREASTS: Deferred. HEART: Regular rate and rhythm without murmur. ABDOMEN: Soft, tender mid-epigastrically, but no guarding, rebound, or hepatosplenomegaly. Functional urostomy noted in the lower abdomen. : Deferred. EXTREMITIES: With muscle wasting generally in upper and lower extremities. SKIN: With poor turgor. Bruising around the cheekbones on the left from a recent fall. NEUROLOGIC: Cranial nerves are intact. Gait and cerebral function are intact. Sensory exam is intact. Mental status is significant for anxiety, but which is her baseline. LABORATORY DATA: On admission thus far showed a hemoglobin of 6.5, hematocrit of 19.5 with WBCs 5.2, and platelets at 323. Her sodium 138, potassium 4.0, chloride 112, CO2 of 20, BUN 17, creatinine 0.82, glucose is 72, magnesium 2.1. Iron 105, TIBC 315, and ferritin at 19.8. Her B12 was 138, folate is 9.8, and TSH is 0.317. ASSESSMENT: 1. Symptomatic anemia in the face of chronic recurring anemia. 2. Chronic pyuria. 3. Chronic anxiety disorder. PLAN: Plan will be to transfusion. We will put her on proton pump inhibitors. Consult GI and serially re-evaluate her. Job ID: [id number]
== END 2019-09-28 12:21 | disposition home or self-care (01) ==
LOC: ERS 15:52 → 2SW 18:50
PROVIDERS: ADMIT Specialist; ATTEND Specialist
DX: D64.9 Anemia, unspecified (principal); E03.9 Hypothyroidism, unspecified; F41.9 Anxiety disorder, unspecified; F32.9 Major depressive disorder, single episode, unspecified; K52.9 Noninfective gastroenteritis and colitis, unspecified; K21.9 Gastro-esophageal reflux disease without esophagitis; G47.00 Insomnia, unspecified; I48.91 Unspecified atrial fibrillation; Z79.01 Long term (current) use of anticoagulants; Z79.899 Other long term (current) drug therapy; Z88.1 Allergy status to other antibiotic agents; Z88.2 Allergy status to sulfonamides; Z88.5 Allergy status to narcotic agent; Z88.8 Allergy status to other drugs, medicaments and biological substances; Z91.81 History of falling
CPT/HCPCS: 36430 ×2; 71045; 80048; 80053; 82274; 82607; 82728; 82746; 83540; 83550; 83735; 84100; 84443; 84484; 85025 ×3; 85610; 85730; 86850 ×3; 86870; 86900; 86901; 86920; 86921; 86922; 93005; 96374; 96376; 99285; G0378 ×4; P9016 ×2; 36415; 90471; 90662; C9113; G0008

== ENCOUNTER 2020-08-05 14:11 | Outpatient (CLI) | payer MEDICARE ==
--- NOTE | 2020-08-05 15:21 | RAD ---
XR Pelvis AP STANDARD HISTORY: Fall, hip pain COMPARISON: 07/06/2019 FINDINGS: No acute fracture or dislocation is identified. Changes of left hip arthroplasty appear in good posit ion and alignment.
--- NOTE | 2020-08-05 16:08 | RAD ---
THORACIC SPINE: 08/05/20 Three views. HISTORY: Fall with back pain. Mild anterior wedging of mid thoracic vertebra did not appear to represent acute compression injury. Lower thoracic vertebrae are not adequately evaluated due to overlying soft tissue attenuation. Ther e are prominent degenerative changes. The lower thoracic vertebrae are well seen on the views of lumbar spine and appear normally maintaine d. IMPRESSION: Degenerative changes of the thoracic spine. Mild wedging of mid thoracic vertebrae appear chronic. POS: [facility]
--- NOTE | 2020-08-05 16:10 | RAD ---
LUMBAR SPINE: 08/05/20 HISTORY: Fall with back pain. There is a scoliotic curvature to the left on the AP projection. Mild degenerative changes of the lum bar spine. On the lateral view, the lumbar vertebrae maintain normal height and alignment. No rebecca apollo deformity seen. No evidence of spondylolisthesis. IMPRESSION: Mild scoliotic curvature and mild degenerative changes of the lumbar spine. No acute compression defo rmity identified. POS: [facility]
== END 2020-08-05 14:12 | disposition home or self-care (01) ==
LOC: BICRAD 14:11
PROVIDERS: ATTEND Specialist
DX: M54.5 Low back pain (principal); M47.816 Spondylosis without myelopathy or radiculopathy, lumbar region; M41.9 Scoliosis, unspecified; W19.XXXA Unspecified fall, initial encounter; M47.814 Spondylosis without myelopathy or radiculopathy, thoracic region; Z96.642 Presence of left artificial hip joint
CPT/HCPCS: 72072; 72100; 72170

== ENCOUNTER 2021-03-23 14:36 | Outpatient (CLI) | payer MEDICARE | END 2021-03-23 14:37 | disposition home or self-care (01) | LOC: BICRAD 14:36 | PROVIDERS: ATTEND Specialist | DX: M25.552 Pain in left hip (principal); M25.551 Pain in right hip; W19.XXXA Unspecified fall, initial encounter ==

== ENCOUNTER 2021-07-20 14:24 | Outpatient (CLI) | payer MEDICARE ==
[2021-07-20 15:30] LABS: Hemoglobin 7.6 g/dL (12.0-15.5); Mean Corpuscular HGB CONC 30.9 g/dL (32.0-36.0); Mean Corpuscular Volume 97.2 fl (81.6-98.3); Mean Platelet Volume 9.8 fl (7.4-10.4); Platelet Count 434 10x3/uL (150-450); RBC Distribution Width 19.1 % (11.5-14.5); Red Blood Cell (RBC) Count 2.53 10x6/uL (3.90-5.03)
[2021-07-20 15:45] LABS: INR-International Normal Ratio 1.1; PTT 27.9 sec (22.0-33.0); Prothrombin Time 11.9 sec (9.5-12.1)
[2021-07-20 15:59] LABS: Anion Gap 11 mmol/L (10-20); BUN (Urea Nitrogen) 22 mg/dL (9.8-20.1); Calc. Creatinine Clearance 0 mL/min (70-130); Calcium 8.4 mg/dL (7.8-10.44); Carbon Dioxide 21 mmol/L (23-31); Chloride 110 mmol/L (98-107); Glucose 60 mg/dL (83-110); Potassium 4.4 mmol/L (3.5-5.1); Sodium 138 mmol/L (136-145)
[2021-07-21 13:04] LABS: SARS-CoV-2 PCR by NAA Not Detected (NotDetected)
== END 2021-07-20 14:25 | disposition home or self-care (01) ==
LOC: LABBT 14:24
PROVIDERS: ATTEND Urology
DX: Z01.818 Encounter for other preprocedural examination (principal); Z20.822 Contact with and (suspected) exposure to COVID-19
CPT/HCPCS: 80048; 85027; 85610; 85730; 93005; U0003; U0005; 93010

== ENCOUNTER 2021-07-23 | Day surgery (SDC) | payer MEDICARE | END 2021-07-23 13:49 | disposition home or self-care (01) | PROC: 0TJB8ZZ Inspection of Bladder, Via Natural or Artificial Opening Endoscopic (ICD-10-PCS; principal; 2021-07-23) | PROC: 3E0K8GC Introduction of Other Therapeutic Substance into Genitourinary Tract, Via Natural or Artificial Opening Endoscopic (ICD-10-PCS; 2021-07-23) ==

== ENCOUNTER 2021-08-04 15:14 | Inpatient (IN) | payer MEDICARE ==
[2021-08-04 16:17] LABS: #Eosinphils 0.2 thou/uL (0.0-0.7); #Lymphocytes 0.9 thou/uL (1.20-3.40); #Monocytes 0.8 thou/uL (0.11-0.59); #Neutrophils 6.9 thou/uL (1.40-6.50); %Basophils 0.1 % (0.0-1.0); %Eosinophils 2.5 % (0.0-10.0); %Lymphocytes 10.2 % (21.0-51.0); %Monocytes 8.5 % (0.0-10.0); %Neutrophils 78.6 % (42.0-75.0); Hemoglobin 7.8 g/dL (12.0-16.0); Mean Corpuscular HGB CONC 32.5 g/dL (32.0-36.0); Mean Corpuscular Hemoglobin 27.9 pg (27.0-31.0); Mean Platelet Volume 7.7 fL (7.4-10.4); Platelet Count 316 thou/uL (130-400); RBC Distribution Width 16.9 % (11.5-14.5); White Blood Cell (WBC) Count 8.8 thou/uL (4.8-10.8)
[2021-08-04] MEDS ORDERED: Lidocaine 4% Cream 5 GM TUBE w/ Tegaderm ONE (16:22)
[2021-08-04] MEDS ORDERED: Lidocaine 2% PF 5 ML VIAL ONE (16:28)
[2021-08-04] MEDS ORDERED: Boostrix 0.5 ML (Tdap) VIAL ONE (16:28)
[2021-08-04 16:41] LABS: ALT (SGPT) 27 U/L (8-55); AST (SGOT) 49 U/L (5-34); Albumin 3.4 g/dL (3.4-4.8); Alkaline Phosphatase 152 U/L (40-110); Anion Gap 11 mmol/L (10-20); BUN (Urea Nitrogen) 25 mg/dL (9.8-20.1); Bilirubin, Total 0.3 mg/dL (0.2-1.2); Calc. Creatinine Clearance 0 mL/min (70-130); Calcium 8.1 mg/dL (7.8-10.44); Carbon Dioxide 17 mmol/L (23-31); Chloride 117 mmol/L (98-107); Globulin 3.5 g/dL (2.4-3.5); Glucose 92 mg/dL (83-110); Potassium 4.5 mmol/L (3.5-5.1); Protein, Total 6.9 g/dL (5.8-8.1); Sodium 140 mmol/L (136-145)
[2021-08-04 16:52] LABS: CKMB 1.9 ng/mL (0-6.6)
[2021-08-04 17:13] LABS: Bilirubin Negative (Negative); Blood, Urine 1+ (Negative); Clarity Clear (Clear); Glucose, Urine (Dipstick) Normal (Negative); Ketone, Urine Negative (Negative); Leukocyte 500 Leu/uL (Negative); Nitrite 2+ (Negative); Protein, Urine (Dipstick) 10 mg/dL (Neg-Trace); Specific Gravity, Urine 1.011 (1.002-1.036); Squamous Epithelial None Seen HPF (0-3); Triple Phosphate Crystal Rare HPF (None Seen); Urobilinogen Normal mg/dL (Less than 2); pH, Urine 7.5 (5.0-9.0)
[2021-08-04 17:17] LABS: Bacteria/HPF 1+ HPF (None Seen)
[2021-08-04] MEDS ORDERED: traMADol HCl 50 MG TAB PO PRN ×2 (17:33→20:46)
[2021-08-04] MEDS ORDERED: TETANUS, DIPHTHERIA TOX,ADULT (TDVAX) 0.5 ML VIAL IM ONE (17:49)
[2021-08-04] MEDS ORDERED: Ondansetron PF 4 MG/2 ML Vial IVP PRN (17:51)
[2021-08-04] MEDS ORDERED: Lidocaine 1% w/Epinephrine 1:100K 20 ML VIAL ONE (18:27)
[2021-08-04 18:46] LABS: Magnesium 1.9 mg/dL (1.6-2.6); Phosphorus 3.2 mg/dL (2.3-4.7)
[2021-08-04] MEDS ORDERED: Lactated Ringer's 1,000 ML IV SCH (20:00)
[2021-08-04 21:13] LABS: SARS-CoV-2 NAA Rapid Test Not Detected (NotDetected)
[2021-08-04 21:23] LABS: Troponin I 0.072 ng/mL (< 0.028)
[2021-08-04 23:20] VITALS: BMI 48.6
[2021-08-05] MEDS: Acetaminophen 500 MG TAB PO SCH ×5 (00:07→23:50)
[2021-08-05] MEDS ORDERED: CEFAZOLIN 2 GM in Premix Bag 1 BAG IVPB SCH (02:00)
[2021-08-05] MEDS: CEFAZOLIN 2 GM in Premix Bag 1 BAG IVPB SCH ×2 (05:15→12:34)
[2021-08-05 06:05] LABS: #Eosinphils 0.3 thou/uL (0.0-0.7); #Lymphocytes 1.8 thou/uL (1.20-3.40); #Monocytes 0.8 thou/uL (0.11-0.59); #Neutrophils 3.9 thou/uL (1.40-6.50); %Basophils 0.6 % (0.0-1.0); %Eosinophils 4.6 % (0.0-10.0); %Lymphocytes 25.7 % (21.0-51.0); %Monocytes 11.6 % (0.0-10.0); %Neutrophils 57.5 % (42.0-75.0); Mean Corpuscular Hemoglobin 28.3 pg (27.0-31.0); Mean Corpuscular Volume 85.9 fL (78.0-98.0); Mean Platelet Volume 7.8 fL (7.4-10.4); Platelet Count 283 thou/uL (130-400); RBC Distribution Width 17.7 % (11.5-14.5); Red Blood Cell (RBC) Count 2.48 mill/uL (4.20-5.40); White Blood Cell (WBC) Count 6.8 thou/uL (4.8-10.8)
[2021-08-05 06:10] LABS: INR-International Normal Ratio 1.1; Prothrombin Time 14.5 sec (12.0-14.7)
[2021-08-05 06:24] LABS: Anion Gap 12 mmol/L (10-20); BUN (Urea Nitrogen) 19 mg/dL (9.8-20.1); Calc. Creatinine Clearance 84 mL/min (70-130); Carbon Dioxide 18 mmol/L (23-31); Chloride 115 mmol/L (98-107); Glucose 71 mg/dL (83-110); Potassium 4.6 mmol/L (3.5-5.1); Sodium 140 mmol/L (136-145)
[2021-08-05] MEDS ORDERED: Lactated Ringer's 1,000 ML IV SCH (07:51)
[2021-08-05] MEDS ORDERED: Levothyroxine Sodium 88 MCG TAB PO SCH (08:00)
[2021-08-05] MEDS ORDERED: Non-Formulary Item 1 EACH (Cholecalciferol (Vitamin D3) [Vitamin D3] 1,250 MCG Capsule) PO SCH (09:00)
[2021-08-05] MEDS ORDERED: Famotidine/PF 20 mg/2ml Vial SLOW IVP SCH (09:00)
[2021-08-05] MEDS ORDERED: Ergocalciferol 1.25 MG(50,000 UNITS) CAP PO SCH (09:00)
[2021-08-05] MEDS: traMADol HCl 50 MG TAB PO SCH ×2 (09:49→21:33)
[2021-08-05] MEDS: Dronedarone HCl 400 MG TAB PO SCH ×2 (09:50→18:33)
[2021-08-05] MEDS ORDERED: Fentanyl 100 MCG/2 ML VIAL ONE (14:27)
[2021-08-05] MEDS ORDERED: Bupivacaine 0.25% HCL 30 ML VIAL ONE (14:34)
[2021-08-05] MEDS ORDERED: Lidocaine 1% w/Epinephrine 1:100K 20 ML VIAL ONE (14:35)
[2021-08-05] MEDS ORDERED: PROPOFOL 200 MG/20 ML VIAL ONE (15:01)
[2021-08-05] MEDS ORDERED: Lidocaine 1% PF 5 ML VIAL ONE (15:01)
[2021-08-05] MEDS ORDERED: Ondansetron PF 4 MG/2 ML Vial ONE (15:01)
[2021-08-05] MEDS ORDERED: Dexamethasone 20 MG/5 ML VIAL ONE (15:01)
[2021-08-05] MEDS: Cephalexin 250 MG CAP PO SCH ×2 (18:33→23:51)
[2021-08-05] MEDS ORDERED: ALPRAZolam 0.25 MG TAB PO PRN (22:41)
[2021-08-06 05:41] LABS: #Lymphocytes 1.3 thou/uL (1.20-3.40); #Neutrophils 5.8 thou/uL (1.40-6.50); %Basophils 0.5 % (0.0-1.0); %Eosinophils 0.5 % (0.0-10.0); %Lymphocytes 15.5 % (21.0-51.0); %Monocytes 11.8 % (0.0-10.0); %Neutrophils 71.7 % (42.0-75.0); Hemoglobin 9.3 g/dL (12.0-16.0); Mean Corpuscular HGB CONC 34.6 g/dL (32.0-36.0); Mean Corpuscular Hemoglobin 30.1 pg (27.0-31.0); Mean Platelet Volume 8.1 fL (7.4-10.4); Platelet Count 270 thou/uL (130-400); RBC Distribution Width 16.8 % (11.5-14.5); Red Blood Cell (RBC) Count 3.07 mill/uL (4.20-5.40); White Blood Cell (WBC) Count 8.1 thou/uL (4.8-10.8)
[2021-08-06] MEDS ORDERED: Levothyroxine Sodium 88 MCG TAB PO SCH (06:00)
[2021-08-06] MEDS: Acetaminophen 500 MG TAB PO SCH ×2 (06:13→12:08)
[2021-08-06] MEDS: Cephalexin 250 MG CAP PO SCH ×2 (06:14→12:10)
[2021-08-06 08:18] VITALS: BP 165/72; TEMP 98.8
[2021-08-06] MEDS ORDERED: Folic Acid 1 MG TAB PO SCH (09:00)
[2021-08-06] MEDS ORDERED: Famotidine 20 MG TAB PO SCH (09:00)
[2021-08-06] MEDS: Dronedarone HCl 400 MG TAB PO SCH (09:17)
[2021-08-06] MEDS: traMADol HCl 50 MG TAB PO SCH (09:18)
[2021-08-06 14:03] LABS: CKMB 1.9 ng/mL (0-6.6)
== END 2021-08-06 15:47 | disposition home or self-care (01) | DRG 513 ==
LOC: ERS 15:14 → SURG B 17:48
PROVIDERS: ADMIT Surgery; ATTEND Surgery
PROC: 0PSP04Z Reposition Right Metacarpal with Internal Fixation Device, Open Approach (ICD-10-PCS; principal; 2021-08-05)
PROC: 30233N1 Transfusion of Nonautologous Red Blood Cells into Peripheral Vein, Percutaneous Approach (ICD-10-PCS; 2021-08-05)
DX: S62.304B Unspecified fracture of fourth metacarpal bone, right hand, initial encounter for open fracture (principal); S26.11XA Contusion of heart without hemopericardium, initial encounter; Z20.822 Contact with and (suspected) exposure to COVID-19; G20 Parkinson's disease; I48.91 Unspecified atrial fibrillation; G47.00 Insomnia, unspecified; G43.909 Migraine, unspecified, not intractable, without status migrainosus; E53.8 Deficiency of other specified B group vitamins; J40 Bronchitis, not specified as acute or chronic; E03.9 Hypothyroidism, unspecified; W18.30XA Fall on same level, unspecified, initial encounter; F32.9 Major depressive disorder, single episode, unspecified; Z90.49 Acquired absence of other specified parts of digestive tract; Z90.710 Acquired absence of both cervix and uterus; Z98.84 Bariatric surgery status; Z79.899 Other long term (current) drug therapy; Z79.890 Hormone replacement therapy; Z86.711 Personal history of pulmonary embolism; Z88.2 Allergy status to sulfonamides; Z88.8 Allergy status to other drugs, medicaments and biological substances
CPT/HCPCS: 36415; 36430; 70450; 71045; 72125; 76000; 80048; 80053; 81003; 81015; 82553; 82607; 82746; 83735; 84100; 84484; 85025; 85610; 86850; 86900; 86901; 90715; 93005; 93306; 93880; G0390; J0690; J1100; J2001; J2405; J2704; J3010; J7120; P9016; S0020; S0028; U0002

== ENCOUNTER 2023-01-03 11:18 | Outpatient (CLI) | payer MEDICARE ==
[2023-01-03 13:12] LABS: Hemoglobin 11.3 g/dL (12.0-15.5); Mean Corpuscular HGB CONC 35.1 g/dL (32.0-36.0); Mean Corpuscular Hemoglobin 38.8 pg (27.0-33.0); Mean Corpuscular Volume 110.7 fl (81.6-98.3); Mean Platelet Volume 10.2 fl (7.4-10.4); Platelet Count 309 10x3/uL (150-450); RBC Distribution Width 15.1 % (11.5-14.5); Red Blood Cell (RBC) Count 2.91 10x6/uL (3.90-5.03); White Blood Cell (WBC) Count 8.2 10x3/uL (3.5-10.5)
[2023-01-03 13:56] LABS: INR-International Normal Ratio 1.5; PTT 46.1 sec (22.0-33.0)
[2023-01-03 14:06] LABS: Anion Gap 9 mmol/L (10-20); BUN (Urea Nitrogen) 34 mg/dL (9.8-20.1); Calc. Creatinine Clearance 0 mL/min (70-130); Calcium 8.4 mg/dL (7.8-10.44); Carbon Dioxide 21 mmol/L (23-31); Chloride 112 mmol/L (98-107); Estimated GFR 42; Glucose 66 mg/dL (83-110); Potassium 4.3 mmol/L (3.5-5.1); Sodium 138 mmol/L (136-145)
== END 2023-01-03 11:19 | disposition home or self-care (01) ==
LOC: LABBT 11:18
PROVIDERS: ATTEND Urology
DX: Z01.818 Encounter for other preprocedural examination (principal); N39.0 Urinary tract infection, site not specified; N32.89 Other specified disorders of bladder; L94.2 Calcinosis cutis; R31.9 Hematuria, unspecified; R60.0 Localized edema; Z93.6 Other artificial openings of urinary tract status
CPT/HCPCS: 80048; 85027; 85610; 85730; 87086; 93005; 93010

== ENCOUNTER 2023-01-14 06:37 | Day surgery (SDC) | payer MEDICARE ==
[2023-01-13 11:06] VITALS: BMI 20.7
[2023-01-14] MEDS ORDERED: Famotidine/PF 20 mg/2ml Vial ONE (09:07)
[2023-01-14] MEDS ORDERED: PROPOFOL 40 ML ONE (09:07)
[2023-01-14] MEDS ORDERED: fentaNYL PF 100 MCG/2 ML SYRINGE ONE (09:07)
[2023-01-14] MEDS ORDERED: cefTRIAXone\\ROCEPHIN 1 GM VIAL ONE (09:16)
[2023-01-14] MEDS ORDERED: Sodium Chloride 0.9% 100 ML ONE (09:16)
[2023-01-14] MEDS ORDERED: Botulinum Toxin 200 UNITS VIAL IM SCH (09:30)
[2023-01-14] MEDS ORDERED: Ondansetron PF 4 MG/2 ML Vial ONE (09:34)
[2023-01-14] MEDS ORDERED: ePHEDrine 50 MG/ML VIAL ONE (09:34)
[2023-01-14] MEDS ORDERED: PROPOFOL 200 MG/20 ML VIAL ONE (09:34)
[2023-01-14] MEDS ORDERED: Lidocaine 1% PF 5 ML VIAL ONE (09:34)
== END 2023-01-14 11:10 | disposition home or self-care (01) ==
LOC: SDC 06:37
PROVIDERS: ATTEND Urology
PROC: 0T7B8ZZ Dilation of Bladder, Via Natural or Artificial Opening Endoscopic (ICD-10-PCS; principal; 2023-01-14)
PROC: 3E0K8GC Introduction of Other Therapeutic Substance into Genitourinary Tract, Via Natural or Artificial Opening Endoscopic (ICD-10-PCS; 2023-01-14)
DX: N32.81 Overactive bladder (principal); I12.9 Hypertensive chronic kidney disease with stage 1 through stage 4 chronic kidney disease, or unspecified chronic kidney disease; N18.9 Chronic kidney disease, unspecified; G20 Parkinson's disease; J45.909 Unspecified asthma, uncomplicated; I48.91 Unspecified atrial fibrillation; E03.9 Hypothyroidism, unspecified; E78.5 Hyperlipidemia, unspecified; M19.90 Unspecified osteoarthritis, unspecified site; Z86.711 Personal history of pulmonary embolism; Z86.718 Personal history of other venous thrombosis and embolism; Z79.01 Long term (current) use of anticoagulants; Z79.899 Other long term (current) drug therapy; Z88.1 Allergy status to other antibiotic agents; Z88.2 Allergy status to sulfonamides; Z88.6 Allergy status to analgesic agent; Z88.8 Allergy status to other drugs, medicaments and biological substances; Z93.6 Other artificial openings of urinary tract status
CPT/HCPCS: 52287; J0585; J0696; J2405; J2704; J3490; S0028

== ENCOUNTER 2025-08-16 16:56 | Inpatient (IN) | payer MEDICARE ==
[2025-08-16 18:31] LABS: Bacteria/HPF 4+ HPF (None Seen); CAUTI Indications for Culture < 2yrs of age; Glucose, Urine (Dipstick) Normal (Negative); Leukocyte 250 Leu/uL (Negative); Protein, Urine (Dipstick) 100 mg/dL (Neg-Trace); RBC/HPF 0-3 HPF (0-3); Specific Gravity, Urine 1.012 (1.002-1.036); WBC/HPF 0-3 HPF (0-3)
[2025-08-16 18:35] LABS: ALT (SGPT) 101 U/L (Less than 34); AST (SGOT) 176 U/L (11-34); Albumin 2.8 g/dL (3.1-4.5); Alkaline Phosphatase 100 U/L (40-110); Anion Gap 23 mmol/L (10-20); BUN (Urea Nitrogen) 102 mg/dL (9.8-20.1); Bilirubin, Total 0.4 mg/dL (0.3-1.2); Calc. Creatinine Clearance 0 mL/min (70-130); Calcium 8.6 mg/dL (7.8-10.44); Carbon Dioxide 10 mmol/L (23-31); Chloride 111 mmol/L (98-107); Globulin 5.7 g/dL (2.4-3.5); Glucose 86 mg/dL (83-110); Potassium 5.4 mmol/L (3.5-5.1); Sodium 139 mmol/L (136-145)
[2025-08-16 18:36] LABS: Urine Culture Reflex Yes Yes
[2025-08-16 19:03] LABS: #Basophils 0.03 10x3/uL (0.0-0.2); #Eosinophils Less than 0.03 10x3/uL (0.0-0.7); #Monocytes 0.90 10x3/uL (0.11-0.59); #Neutrophils 9.57 10x3/uL (1.40-6.50); %Basophils 0.3 % (0.0-1.0); %Eosinophils 0.1 % (0.0-10.0); %Lymphocytes 3.8 % (21.0-51.0); %Monocytes 8.0 % (0.0-10.0); %Neutrophils 85.5 % (42.0-75.0); Hematocrit 33.9 % (36.0-47.0); Hemoglobin 10.7 g/dL (12.0-16.0); Mean Corpuscular Hemoglobin 30.3 pg (27.0-31.0); Mean Corpuscular Volume 96.0 fL (78.0-98.0); Platelet Count 246 10x3/uL (130-400); Red Blood Cell (RBC) Count 3.53 mill/uL (4.20-5.40); White Blood Cell (WBC) Count 11.19 10x3/uL (4.8-10.8)
[2025-08-16] MEDS ORDERED: Dextrose 50% Abboject 50 ML SYRINGE ONE (19:16)
[2025-08-16] MEDS ORDERED: Sodium Bicarb 50 MEQ/50 ML Abboject 8.4% SYRINGE ONE (19:16)
[2025-08-16] MEDS ORDERED: Calcium Chloride 1 GM/10 ML Abboject SYRINGE ONE (19:16)
[2025-08-16] MEDS ORDERED: Guaifenesin DM 100-10/5 ML UDCUP PO PRN (20:17)
[2025-08-16] MEDS ORDERED: Acetaminophen 325 MG TAB PO PRN (20:17)
[2025-08-16] MEDS ORDERED: Ondansetron PF 4 MG/2 ML Vial IVP PRN (20:17)
[2025-08-17 00:06] LABS: Actual Bicarbonate (HCO3v) 15.3 mEq/L (22-28); Base Excess -8.9 mEq/L (-2.0 to +3.0); Calcium, Ionized (venous) 1.06 mmol/L (1.16-1.32); Chloride (VBG) 110 mmol/L (98-106); Hematocrit-VBG 31 % (36.0-47.0); Hemoglobin (Hb) 10.7 g/dL (11.7-16.1); Potassium (VBG) 3.81 mmol/L (3.70-5.30); Sodium 140 mmol/L (133-146)
[2025-08-17] MEDS: cefTRIAXone\\ROCEPHIN 2 GM in Sodium Chloride 0.9% 100 ML IVPB SCH (00:20)
[2025-08-17] MEDS: Pantoprazole 40 MG VIAL IVP SCH ×2 (00:22→09:46)
[2025-08-17] MEDS: Mirtazapine 15 MG TAB PO SCH (00:33)
[2025-08-17] MEDS: Heparin 5,000 UNITS/ML VIAL SC SCH (00:35)
[2025-08-17] MEDS: Lactulose 20 GM (30 mL) UDCUP PO SCH (00:51)
[2025-08-17 01:00] LABS: Anion Gap 21 mmol/L (10-20); BUN (Urea Nitrogen) 95 mg/dL (9.8-20.1); Calc. Creatinine Clearance 0 mL/min (70-130); Calcium 8.3 mg/dL (7.8-10.44); Carbon Dioxide 13 mmol/L (23-31); Chloride 111 mmol/L (98-107); Glucose 166 mg/dL (83-110); Potassium 3.8 mmol/L (3.5-5.1); Sodium 141 mmol/L (136-145)
[2025-08-17 02:44] LABS: Actual Bicarbonate (HCO3v) 15.7 mEq/L (22-28); Base Excess -8.1 mEq/L (-2.0 to +3.0); Calcium, Ionized (venous) 1.07 mmol/L (1.16-1.32); Chloride (VBG) 112 mmol/L (98-106); Hematocrit-VBG 31 % (36.0-47.0); Hemoglobin (Hb) 10.5 g/dL (11.7-16.1); Potassium (VBG) 3.57 mmol/L (3.70-5.30); Sodium 142 mmol/L (133-146)
[2025-08-17 02:49] LABS: #Basophils Less than 0.03 10x3/uL (0.0-0.2); #Eosinophils 0.03 10x3/uL (0.0-0.7); #Monocytes 0.94 10x3/uL (0.11-0.59); #Neutrophils 9.16 10x3/uL (1.40-6.50); %Basophils 0.1 % (0.0-1.0); %Eosinophils 0.3 % (0.0-10.0); %Lymphocytes 3.9 % (21.0-51.0); %Monocytes 8.7 % (0.0-10.0); %Neutrophils 85.2 % (42.0-75.0); Hematocrit 30.9 % (36.0-47.0); Hemoglobin 9.6 g/dL (12.0-16.0); Mean Corpuscular Hemoglobin 28.4 pg (27.0-31.0); Mean Corpuscular Volume 91.4 fL (78.0-98.0); Platelet Count 214 10x3/uL (130-400); Red Blood Cell (RBC) Count 3.38 mill/uL (4.20-5.40); White Blood Cell (WBC) Count 10.75 10x3/uL (4.8-10.8)
[2025-08-17 03:09] LABS: ALT (SGPT) 81 U/L (Less than 34); AST (SGOT) 157 U/L (11-34); Albumin 2.2 g/dL (3.1-4.5); Alkaline Phosphatase 82 U/L (40-110); Anion Gap 19 mmol/L (10-20); BUN (Urea Nitrogen) 94 mg/dL (9.8-20.1); Bilirubin, Total 0.3 mg/dL (0.3-1.2); CK (CPK) 831 U/L (29-168); Calc. Creatinine Clearance 0 mL/min (70-130); Calcium 8.4 mg/dL (7.8-10.44); Carbon Dioxide 15 mmol/L (23-31); Chloride 113 mmol/L (98-107); Globulin 4.7 g/dL (2.4-3.5); Glucose 125 mg/dL (83-110); Potassium 3.6 mmol/L (3.5-5.1); Sodium 143 mmol/L (136-145)
[2025-08-17 05:11] VITALS: BMI 19.1
[2025-08-17] MEDS ORDERED: Rosuvastatin 20 MG TAB PO SCH (09:00)
[2025-08-17] MEDS: Multivitamin W/ Minerals 1 TAB PO SCH (10:06)
[2025-08-17] MEDS: Senokot S 8.6-50 MG TAB PO SCH (10:06)
[2025-08-17 11:16] LABS: Hematocrit 28.9 % (36.0-47.0); Hemoglobin 9.3 g/dL (12.0-16.0); Platelet Count 219 10x3/uL (130-400)
[2025-08-17] MEDS: Heparin 10,000 UNITS/ 10 ML VIAL SLOW IVP SCH (13:46)
[2025-08-17 20:43] LABS: PTT Greater than 250.0 sec (22.9-36.1)
[2025-08-17] MEDS: Mineral Oil ENEMA PR SCH (21:52)
[2025-08-17 23:39] LABS: PTT 185.5 sec (22.9-36.1)
[2025-08-18 01:53] LABS: #Basophils Less than 0.03 10x3/uL (0.0-0.2); #Eosinophils 0.07 10x3/uL (0.0-0.7); #Monocytes 0.74 10x3/uL (0.11-0.59); #Neutrophils 7.30 10x3/uL (1.40-6.50); %Basophils 0.2 % (0.0-1.0); %Eosinophils 0.8 % (0.0-10.0); %Lymphocytes 6.6 % (21.0-51.0); %Monocytes 8.4 % (0.0-10.0); %Neutrophils 82.5 % (42.0-75.0); Hematocrit 28.9 % (36.0-47.0); Hemoglobin 9.5 g/dL (12.0-16.0); Mean Corpuscular Hemoglobin 30.0 pg (27.0-31.0); Mean Corpuscular Volume 91.2 fL (78.0-98.0); Platelet Count 212 10x3/uL (130-400); Red Blood Cell (RBC) Count 3.17 mill/uL (4.20-5.40); White Blood Cell (WBC) Count 8.84 10x3/uL (4.8-10.8)
[2025-08-18 02:58] LABS: Anion Gap 19 mmol/L (10-20); BUN (Urea Nitrogen) 85 mg/dL (9.8-20.1); Calc. Creatinine Clearance 7 mL/min (70-130); Calcium 7.8 mg/dL (7.8-10.44); Carbon Dioxide 23 mmol/L (23-31); Chloride 103 mmol/L (98-107); Glucose 107 mg/dL (83-110); Potassium 3.7 mmol/L (3.5-5.1); Sodium 141 mmol/L (136-145)
[2025-08-18 03:29] LABS: Albumin 1.9 g/dL (3.1-4.5); Alkaline Phosphatase 91 U/L (40-110); Bilirubin, Direct 0.2 mg/dL (0.1-0.3); Bilirubin, Total 0.3 mg/dL (0.3-1.2)
[2025-08-18 03:30] LABS: ALT (SGPT) 77 U/L (Less than 34); AST (SGOT) 163 U/L (11-34)
[2025-08-18] MEDS: Mupirocin 1 GM TUBE TP SCH (09:26)
[2025-08-18] MEDS: Albumin 25% 25 GM (100 mL) BOT IVPB SCH (13:39)
[2025-08-19 05:19] LABS: #Basophils Less than 0.03 10x3/uL (0.0-0.2); #Eosinophils 0.09 10x3/uL (0.0-0.7); #Monocytes 0.63 10x3/uL (0.11-0.59); #Neutrophils 5.74 10x3/uL (1.40-6.50); %Basophils 0.3 % (0.0-1.0); %Eosinophils 1.2 % (0.0-10.0); %Lymphocytes 13.6 % (21.0-51.0); %Monocytes 8.3 % (0.0-10.0); %Neutrophils 75.3 % (42.0-75.0); Hematocrit 26.1 % (36.0-47.0); Hemoglobin 8.8 g/dL (12.0-16.0); Mean Corpuscular Hemoglobin 32.2 pg (27.0-31.0); Mean Corpuscular Volume 95.6 fL (78.0-98.0); Platelet Count 221 10x3/uL (130-400); Red Blood Cell (RBC) Count 2.73 mill/uL (4.20-5.40); White Blood Cell (WBC) Count 7.62 10x3/uL (4.8-10.8)
[2025-08-19 05:36] LABS: Anion Gap 18 mmol/L (10-20); BUN (Urea Nitrogen) 72 mg/dL (9.8-20.1); Calc. Creatinine Clearance 6 mL/min (70-130); Calcium 8.1 mg/dL (7.8-10.44); Carbon Dioxide 22 mmol/L (23-31); Chloride 104 mmol/L (98-107); Glucose 93 mg/dL (83-110); Potassium 3.1 mmol/L (3.5-5.1); Sodium 141 mmol/L (136-145)
[2025-08-19 05:53] LABS: PTT 128.5 sec (22.9-36.1)
[2025-08-19] MEDS: Potassium Chloride 20 MEQ in Premix 1 BAG IVPB SCH (09:36)
[2025-08-19 11:08] LABS: Hematocrit 27.9 % (36.0-47.0); Hemoglobin 8.5 g/dL (12.0-16.0); Platelet Count 222 10x3/uL (130-400)
[2025-08-20 05:13] LABS: #Basophils Less than 0.03 10x3/uL (0.0-0.2); #Eosinophils 0.24 10x3/uL (0.0-0.7); #Monocytes 0.69 10x3/uL (0.11-0.59); #Neutrophils 5.64 10x3/uL (1.40-6.50); %Basophils 0.3 % (0.0-1.0); %Eosinophils 3.1 % (0.0-10.0); %Lymphocytes 14.8 % (21.0-51.0); %Monocytes 8.8 % (0.0-10.0); %Neutrophils 71.7 % (42.0-75.0); Hematocrit 30.8 % (36.0-47.0); Hemoglobin 10.2 g/dL (12.0-16.0); Mean Corpuscular Hemoglobin 31.2 pg (27.0-31.0); Mean Corpuscular Volume 94.2 fL (78.0-98.0); Platelet Count 218 10x3/uL (130-400); Red Blood Cell (RBC) Count 3.27 mill/uL (4.20-5.40); White Blood Cell (WBC) Count 7.85 10x3/uL (4.8-10.8)
[2025-08-20 05:41] LABS: ALT (SGPT) 53 U/L (Less than 34); AST (SGOT) 90 U/L (11-34); Albumin 2.6 g/dL (3.1-4.5); Alkaline Phosphatase 63 U/L (40-110); Anion Gap 16 mmol/L (10-20); BUN (Urea Nitrogen) 61 mg/dL (9.8-20.1); Bilirubin, Total 0.2 mg/dL (0.3-1.2); Calc. Creatinine Clearance 6 mL/min (70-130); Calcium 8.1 mg/dL (7.8-10.44); Carbon Dioxide 20 mmol/L (23-31); Chloride 108 mmol/L (98-107); Globulin 3.5 g/dL (2.4-3.5); Glucose 79 mg/dL (83-110); Magnesium 1.6 mg/dL (1.6-2.6); Potassium 3.3 mmol/L (3.5-5.1); Sodium 141 mmol/L (136-145)
[2025-08-20] MEDS: Potassium Chloride 20 MEQ in Premix 1 BAG IVPB SCH (10:15)
[2025-08-20 11:48] LABS: PTT 212.9 sec (22.9-36.1)
[2025-08-20] MEDS: Albumin 25% 25 GM (100 mL) BOT IVPB SCH (13:04)
[2025-08-20] MEDS: Apixaban 5 MG TAB PO SCH (21:10)
[2025-08-21 05:42] LABS: #Basophils Less than 0.03 10x3/uL (0.0-0.2); #Eosinophils 0.35 10x3/uL (0.0-0.7); #Monocytes 0.64 10x3/uL (0.11-0.59); #Neutrophils 5.33 10x3/uL (1.40-6.50); %Basophils 0.3 % (0.0-1.0); %Eosinophils 4.4 % (0.0-10.0); %Lymphocytes 18.7 % (21.0-51.0); %Monocytes 8.1 % (0.0-10.0); %Neutrophils 67.4 % (42.0-75.0); Hematocrit 27.4 % (36.0-47.0); Hemoglobin 8.5 g/dL (12.0-16.0); Mean Corpuscular Hemoglobin 30.7 pg (27.0-31.0); Mean Corpuscular Volume 98.9 fL (78.0-98.0); Platelet Count 202 10x3/uL (130-400); Red Blood Cell (RBC) Count 2.77 mill/uL (4.20-5.40); White Blood Cell (WBC) Count 7.91 10x3/uL (4.8-10.8)
[2025-08-21 06:01] LABS: ALT (SGPT) 49 U/L (Less than 34); AST (SGOT) 85 U/L (11-34); Albumin 3.3 g/dL (3.1-4.5); Alkaline Phosphatase 52 U/L (40-110); Anion Gap 15 mmol/L (10-20); BUN (Urea Nitrogen) 53 mg/dL (9.8-20.1); Bilirubin, Total 0.3 mg/dL (0.3-1.2); CK (CPK) 1312 U/L (29-168); Calc. Creatinine Clearance 8 mL/min (70-130); Calcium 8.4 mg/dL (7.8-10.44); Carbon Dioxide 18 mmol/L (23-31); Chloride 110 mmol/L (98-107); Globulin 2.9 g/dL (2.4-3.5); Glucose 71 mg/dL (83-110); Magnesium 1.6 mg/dL (1.6-2.6); Potassium 3.3 mmol/L (3.5-5.1); Sodium 140 mmol/L (136-145)
[2025-08-21] MEDS: D5 1/2 NS w/40 mEq KCL 1,000 ML IV SCH (08:13)
[2025-08-22 05:12] LABS: #Basophils 0.03 10x3/uL (0.0-0.2); #Eosinophils 0.34 10x3/uL (0.0-0.7); #Monocytes 0.66 10x3/uL (0.11-0.59); #Neutrophils 6.95 10x3/uL (1.40-6.50); %Basophils 0.3 % (0.0-1.0); %Eosinophils 3.6 % (0.0-10.0); %Lymphocytes 14.8 % (21.0-51.0); %Monocytes 6.9 % (0.0-10.0); %Neutrophils 72.7 % (42.0-75.0); Hematocrit 29.1 % (36.0-47.0); Hemoglobin 9.0 g/dL (12.0-16.0); Mean Corpuscular Hemoglobin 29.8 pg (27.0-31.0); Mean Corpuscular Volume 96.4 fL (78.0-98.0); Platelet Count 236 10x3/uL (130-400); Red Blood Cell (RBC) Count 3.02 mill/uL (4.20-5.40); White Blood Cell (WBC) Count 9.55 10x3/uL (4.8-10.8)
[2025-08-22 05:18] LABS: Anion Gap 16 mmol/L (10-20); BUN (Urea Nitrogen) 50 mg/dL (9.8-20.1); Calc. Creatinine Clearance 9 mL/min (70-130); Calcium 8.2 mg/dL (7.8-10.44); Carbon Dioxide 15 mmol/L (23-31); Chloride 113 mmol/L (98-107); Glucose 87 mg/dL (83-110); Potassium 4.8 mmol/L (3.5-5.1); Sodium 139 mmol/L (136-145)
[2025-08-22] MEDS: Sodium Bicarbonate Tab 325 MG TAB PO SCH (10:00)
[2025-08-22 14:36] VITALS: BMI 21.2
[2025-08-23 12:00] VITALS: TEMP 98.5
[2025-08-23 12:34] VITALS: BP 160/67
== END 2025-08-23 20:14 | disposition hospice, inpatient (51) | DRG 682 ==
LOC: ERS 16:56 → ERHOLD 20:28 → IMCU/EMU 21:42 → 2NO 08-18 16:47
PROVIDERS: ADMIT Student in an Organized Health Care Education/Training Program; ATTEND Internal Medicine
PROC: 3E03329 Introduction of Other Anti-infective into Peripheral Vein, Percutaneous Approach (ICD-10-PCS; principal; 2025-08-16)
PROC: 30233J1 Transfusion of Nonautologous Serum Albumin into Peripheral Vein, Percutaneous Approach (ICD-10-PCS; 2025-08-18)
DX: N17.9 Acute kidney failure, unspecified (principal); E43 Unspecified severe protein-calorie malnutrition; G93.41 Metabolic encephalopathy; T83.518A Infection and inflammatory reaction due to other urinary catheter, initial encounter; E87.21 Acute metabolic acidosis; N39.0 Urinary tract infection, site not specified; M62.82 Rhabdomyolysis; F03.93 Unspecified dementia, unspecified severity, with mood disturbance; E88.09 Other disorders of plasma-protein metabolism, not elsewhere classified; K59.00 Constipation, unspecified; Z96.641 Presence of right artificial hip joint; E03.9 Hypothyroidism, unspecified; R62.7 Adult failure to thrive; I48.0 Paroxysmal atrial fibrillation; Z96.642 Presence of left artificial hip joint; E87.5 Hyperkalemia; E78.5 Hyperlipidemia, unspecified; Z98.84 Bariatric surgery status; Z79.4 Long term (current) use of insulin; Z90.710 Acquired absence of both cervix and uterus; Z88.8 Allergy status to other drugs, medicaments and biological substances; Z88.2 Allergy status to sulfonamides; Z88.5 Allergy status to narcotic agent; Z88.1 Allergy status to other antibiotic agents; Z86.711 Personal history of pulmonary embolism; Z98.890 Other specified postprocedural states; Z95.0 Presence of cardiac pacemaker; Z82.49 Family history of ischemic heart disease and other diseases of the circulatory system; Z68.21 Body mass index [BMI] 21.0-21.9, adult; Z79.899 Other long term (current) drug therapy; Z79.890 Hormone replacement therapy
CPT/HCPCS: 36415; 36416; 71045; 74176; 76770; 80048; 80053; 80076; 81001; 82010; 82550; 82805; 83605; 83735; 84439; 84443; 85014; 85018; 85025; 85049; 85347; 85610; 85730; 87077; 87086; 93005; 96361; 96374; 96375; 97139; J0696; J1644; J1815; J2470; J3480; J7042; J7070; J7999; P9047